=== PATIENT | female | born 1970 | race Caucasian/White ===

== ENCOUNTER 2021-05-24 10:14 | Inpatient (IN) | payer SELFPAY ==
[~2021-05-24] VITALS: Ht 157.5 cm; Wt 57.0 kg
[2021-05-24] MEDS ORDERED: IV NORMAL SALINE 1000ML BAG 1,000 ML IV SCH (10:45)
[2021-05-24] MEDS ORDERED: FAMOTIDINE 20 MG/2 ML VIAL IVP ONE (10:45)
[2021-05-24] MEDS ORDERED: METOCLOPRAMIDE HCL 10 MG/2 ML VIAL. IVP ONE (10:45)
[2021-05-24 10:55] LABS: BASO # 0.1 x10^3/uL (0.0-0.2); BASO % 1 % (0-3); EOS % 0 % (0-3); HEMOGLOBIN 13.3 g/dL (12.0-15.5); LYMPH # 1.4 x10^3/uL (1.0-4.8); LYMPH % 13 % (24-48); MEAN CORPUSCULAR HEMOGLOBIN 32 pg (25-35); MEAN CORPUSCULAR HGB CONC 34 g/dL (31-37); MEAN CORPUSCULAR VOLUME 94 fL (79-100); MONO # 0.4 x10^3/uL (0.0-1.1); MONO % 4 % (0-9); NEUT # 9.1 x10^3/uL (1.8-7.7); NEUT % 82 % (31-73); PLATELET COUNT 358 x10^3/uL (140-400); RED BLOOD COUNT 4.16 x10^6/uL (3.50-5.40); RED CELL DISTRIBUTION WIDTH 12.8 % (11.5-14.5)
[2021-05-24 11:07] LABS: CALCIUM 8.1 mg/dL (8.5-10.1); CREATININE 0.8 mg/dL (0.6-1.0); GFR 76.2; POTASSIUM 3.6 mmol/L (3.5-5.1)
[2021-05-24 11:10] LABS: ALBUMIN 3.2 g/dL (3.4-5.0); ALBUMIN/GLOBULIN RATIO 0.8 (1.0-1.7); TOTAL BILIRUBIN 0.6 mg/dL (0.2-1.0); TOTAL PROTEIN 7.2 g/dL (6.4-8.2)
[2021-05-24] MEDS ORDERED: IOHEXOL 300 MG/ML 100ML VIAL. IV ONE (11:15)
[2021-05-24] MEDS ORDERED: CONTRAST GIVEN. MC PRN (11:15)
[2021-05-24] MEDS ORDERED: HYDROmorphone 2 MG/ML VIAL IVP ONE ×2 (11:15→12:45)
[2021-05-24] MEDS ORDERED: ONDANSETRON PF 4 MG/2 ML VIAL. ONE (11:38)
[2021-05-24] MEDS ORDERED: ONDANSETRON PF 4 MG/2 ML VIAL. IM ONE (11:45)
[2021-05-24 11:51] LABS: BILIRUBIN,URINE NEGATIVE (NEG); CLARITY,URINE CLEAR; COLOR,URINE YELLOW; NITRITE,URINE NEGATIVE (NEG); PH,URINE 6.5 (<5.0-8.0); PROTEIN,URINE NEGATIVE (NEG-TRACE); UROBILINOGEN,URINE 0.2 mg/dL (0.2 mg/dL)
[2021-05-24 11:59] LABS: BARBITURATES NEG (NEG); BENZODIAZEPINES NEG (NEG); CANNABINOIDS NEG (NEG); COCAINE NEG (NEG); METHADONE NEG (NEG); OPIATES POS (NEG); PHENCYCLIDINE NEG (NEG); RBC,URINE 0 /HPF (0-2)
[2021-05-24 12:00] LABS: AMPHETAMINE/METHAMPHETAMINE NEG (NEG); BACTERIA,URINE MODERATE /HPF (0-FEW)
--- NOTE | 2021-05-24 12:43 | RAD ---
INDICATION: Reason: abd pain, rlq, n//vd / Spl. Instructions: omni 300 75ml / History: COMPARISON: None. TECHNIQUE: Axial CT images were obtained through the abdomen and pelvis with intravenous contrast. One or more of the following individualized dose reduction techniques were utilized for this examinat ion: 1. Automated exposure control; 2. Adjustment of the mA and/or kV according to patient size; 3 . Use of iterative reconstruction technique. FINDINGS: Small hiatal hernia. Vascular: Scattered calcific atherosclerosis. Hepatobiliary: Liver is enlarged. Pancreas: The pancreas enhances. Spleen: Spleen unremarkable. Renal: Anterior to the left kidney medially there is a small kobi of air seen and difficult to tell if this is air within a diverticulum or a small focus of free air. No hydronephrosis Bladder: Partially distended Gastrointestinal: At the anterior aspect of the abdomen on the right at the level of the right kidney there is a small focus of air identified. Difficult to tell if this is secondary to a diverticulum o ff of the adjacent bowel or if this is a small focus of free air. Edema seen within the mesentery as well as free fluid. There is loculated fluid within the pelvis wit h enhancement of the peritoneum with this region of fluid measuring up to approximately 85 x 88 mm. T here are some additional loculated regions of fluid including at the right side of the abdomen abutti ng the liver and right colon Which has an irregular shape. There are multiple thick-walled loops of small bowel and large bowel seen throughout the abdomen and pelvis with inflamed appearance. There is also mucosal hyperenhancement. At the right lower quadrant of the abdomen there is a tubular structure measuring up to about 15 mm with high density material wi thin and fluid. This is suspicious for a dilated appendix with multiple appendicoliths within. Degenerative changes the spine with multilevel central canal and neural foraminal stenosis. IMPRESSION: Within the right lower quadrant of the abdomen there is a tubular structure identified with high den sity material within suspicious for an enlarged appendix with multiple appendicoliths. This can be se en with appendicitis. The large and small bowel loops have thickened valencia and mucosal hyperenhancement concerning for ente rocolitis which could be secondary to inflammation from ruptured appendicitis. There is also loculate d fluid within the pelvis and right side of the abdomen with peripheral enhancement which can be seen with peritonitis or phlegmon/developing abscess. In addition there is a couple of foci of air seen a djacent to bowel loops and difficult to tell if this is secondary to extraluminal air or if this is s econdary to small diverticula. Report called to the emergency department at 12:34 PM Electronically signed by: Behzad Torrez MD (05/24/2021 12:41 PM) [id number]
[2021-05-24] MEDS ORDERED: AZTREONAM IV Push 2 GM VIAL. IVP ONE (12:45)
--- NOTE | 2021-05-24 12:50 | PDOC1 ---
History and Physical Date of Admission Date of Admission DATE: 05/24/21 TIME: 12:49 Identification/Chief Complaint Chief Complaint Abdominal pain Source Source: Chart review, Patient History of Present Illness History of Present Illness Ms Silva 50 yo F with no past medical history who is an ecig user presents to the ED c/o abdominal pain for the past 48 hours prior to presentation. Pain started on 927 and is periumbilical crampy and has been progressive since then has moved to the right lower quadrant is more diffuse. Today her pain was 10 out of 10 sharp while sitting in her desk and had sudden onset vomiting and multiple episodes of diarrhea. She became lightheaded felt as though she was going to pass out so came to the emergency department for further treatment. Never been hospitalized before neurosurgery previously. She takes oral contraceptive and is weaning herself down on an e-cigarette vaporizing device. Labs with WBC 11, Hb 13.3, platelets 358, NA 134, K3.6, BUN 9, CR 0.8, glucose 120, CRP 91, albumin 3.2, UA with multiple squamous epithelial cells likely bad sample but hCG negative. UDS after pain medication positive for opioids. CT abdomen pelvis reviewed visually and with radiology with tubular structure identified with high density material within suspicious for an enlarged appendix with multiple appendicoliths. Admitted for further care. Past Medical History Cardiovascular: No pertinent hx Past Surgical History Past Surgical History: No pertinent history Family History Family History reviewed Family History: No Significant Current Medications Current Medications Current Medications Sodium Chloride 1,000 ml @ 1,000 mls/hr Q1H IV Last administered on 05/24/21at 10:56; Start 05/24/21 at 10:45; Stop 05/24/21 at 11:44 Famotidine (Pepcid Vial) 20 mg 1X ONCE IVP Last administered on 05/24/21at 10:54; Start 05/24/21 at 10:45; Stop 05/24/21 at 10:46 Metoclopramide HCl (Reglan Vial) 10 mg 1X ONCE IVP Last administered on 05/24at 10:57; Start 05/24/21 at 10:45; Stop 05/24/21 at 10:46 Hydromorphone HCl (Dilaudid) 1 mg 1X ONCE IVP Last administered on 05/24/21at 11:15; Start 05/24/21 at 11:15; Stop 05/24/21 at 11:16 Iohexol (Omnipaque 300 Mg/ml) 75 ml 1X ONCE IV ; Start 05/24/21 at 11:15; Stop 05/24/21 at 11:16 Info (CONTRAST GIVEN -- Rx MONITORING) 1 each PRN DAILY PRN MC SEE COMMENTS; Start 05/24/21 at 11:15; Stop 05/26/21 at 11:14 Ondansetron HCl (Zofran) 4 mg 1X ONCE IM ; Start 05/24/21 at 11:45; Stop 05/24/21 at 11:46 Ondansetron HCl (Zofran) 4 mg STK-MED ONCE .ROUTE ; Start 05/24/21 at 11:38; Stop 05/24/21 at 11:38; Status DC Aztreonam (Azactam) 2 gm 1X ONCE IVP ; Start 05/24/21 at 12:45; Stop 05/24/21 at 12:46; Status UNV Metronidazole 100 ml @ 100 mls/hr 1X ONCE IV ; Start 05/24/21 at 12:45; Stop 05/24/21 at 13:44 Hydromorphone HCl (Dilaudid) 1 mg 1X ONCE IVP ; Start 05/24/21 at 12:45; Stop 05/24/21 at 12:46 Allergies Allergies: Coded Allergies: Penicillins (Verified Adverse Reaction, Intermediate, N/V, 05/24/21) ROS General: No: Chills, Night Sweats, Fatigue, Malaise, Appetite, Other PSYCHOLOGICAL ROS: No: Anxiety, Behavioral Disorder, Concentration difficultie, Decreased libido, Depression, Disorientation, Hallucinations, Hostility, Irritablity, Memory difficulties, Mood Swings, Obsessive thoughts, Physical abuse, Sexual abuse, Sleep disturbances, Suicidal ideation, Other Eyes: No Blurry vision, No Decreased vision, No Double vision, No Dry eyes, No Excessive tearing, No Eye Pain, No Itchy Eyes, No Loss of vision, No Kong tophobia, No Scotomata, No Uses contacts, No Uses glasses, No Other HEENT: No: Heacaches, Visual Changes, Hearing change, Nasal congestion, Nasal discharge, Oral lesions, Sinus pain, Sore Throat, Epistaxis, Sneezing, Snoring, Tinnitus, Vertigo, Vocal changes, Other ALLERGY AND IMMUNOLOGY: No: Hives, Insect Bite Sensitivity, Itchy/Watery Eyes, Nasal Congestion, Post Nasal Drip, Seasonal Allergies, Other Hematological and Lymphatic: No: Bleeding Problems, Blood Clots, Blood Transfusions, Brusing, Night Sweats, Pallor, Swollen Lymph Nodes, Other ENDOCRINE: No: Breast Changes, Galactorrhea, Hair Pattern Changes, Hot Flashes, Malaise/lethargy, Mood Swings, Palpitations, Polydipsia/polyuria, Skin Changes, Temperature Intolerance, Unexpected Weight Changes, Other Breast: No New/Changing Breast Lumps, No Nipple changes, No Nipple discharge, No Other Respiratory: No: Cough, Hemoptysis, Orthopnea, Pleuritic Pain, Shortness of breath, SOB with excertion, Sputum Changes, Stridor, Tachypnea, Wheezing, Other Cardiovascular: No Chest Pain, No Palpitations, No Orthopnea, No Paroxysmal Noc. Dyspnea, No Edema, No Lt Headedness, No Other Gastrointestinal: Yes Nausea, Yes Vomiting; No Abdominal Pain, No Diarrhea, No Constipation, No Melena, No Hematochezia, No Other Genitourinary: No Dysuria, No Frequency, No Incontinence, No Hematuria, No Retention, No Discharge, No Urgency, No Pain, No Flank Pain, No Other, No , No , No , No , No , No , No Musculoskeletal: No Gait Disturbance, No Joint Pain, No Joint Stiffness, No Joint Swelling, No Muscle Pain, No Muscular Weakness, No Pain In:, No Swelling In:, No Other Neurological: No Behavorial Changes, No Bowel/Bladder ControlChng, No Confusion, No Dizziness, No Gait Disturbance, No Headaches, No Impaired Coor d/balance, No Memory Loss, No Numbness/Tingling, No Seizures, No Speech Problems, No Tremors, No Visual Changes, No Weakness, No Other Skin: No Dry Skin, No Eczema, No Hair Changes, No Lumps, No Mole Changes, No Mottling, No Nail Changes, No Pruritus, No Rash, No Skin Lesion Changes, No Other, No Acne Physical Exam General: Alert, Oriented X3, Cooperative, moderate distress HEENT: Atraumatic, PERRLA, EOMI, Mucous membr. moist/pink Lungs: Clear to auscultation, Normal air movement Heart: S1S2, RRR, no thrills, no rubs, no gallops, no murmurs Abdomen: Normal bowel sounds, Soft, No hepatosplenomegaly, No masses, Other ( RLQ tenderness) Rectal Exam: not examined Extremities: No clubbing, No cyanosis, No edema, Normal pulses, No tenderness/swelling Skin: No rashes, No breakdown, No significant lesion Neuro: Normal gait, Normal speech, Strength at 5/5 X4 ext, Normal tone, Sensation intact, Cranial nerves 3-12 NL, Reflexes 2+ Psych/Mental Status: Mental status NL, Mood NL Vitals Vitals Vital Signs Date Time Temp Pulse Resp B/P (MAP) Pulse Ox O2 Delivery O2 Flow Rate FiO2 05/24/21 12:43 84 111/66 (81) 100 Room Air 05/24/21 10:23 99.3 18 99.3 Labs Labs Laboratory Tests Test 05/24/21 10:30 05/24/21 11:23 05/24/21 11:48 White Blood Count 11.0 x10^3/uL (4.0-11.0) Red Blood Count 4.16 x10^6/uL (3.50-5.40) Hemoglobin 13.3 g/dL (12.0-15.5) Hematocrit 39.0 % (36.0-47.0) Mean Corpuscular Volume 94 fL (79-100) Mean Corpuscular Hemoglobin 32 pg (25-35) Mean Corpuscular Hemoglobin Concent 34 g/dL (31-37) Red Cell Distribution Width 12.8 % (11.5-14.5) Platelet Count 358 x10^3/uL (140-400) Neutrophils (%) (Auto) 82 % (31-73) Lymphocytes (%) (Auto) 13 % (24-48) Monocytes (%) (Auto) 4 % (0-9) Eosinophils (%) (Auto) 0 % (0-3) Basophils (%) (Auto) 1 % (0-3) Neutrophils # (Auto) 9.1 x10^3/uL (1.8-7.7) Lymphocytes # (Auto) 1.4 x10^3/uL (1.0-4.8) Monocytes # (Auto) 0.4 x10^3/uL (0.0-1.1) Eosinophils # (Auto) 0.0 x10^3/uL (0.0-0.7) Basophils # (Auto) 0.1 x10^3/uL (0.0-0.2) Sodium Level 134 mmol/L (136-145) Potassium Level 3.6 mmol/L (3.5-5.1) Chloride Level 102 mmol/L (98-107) Carbon Dioxide Level 21 mmol/L (21-32) Anion Gap 11 (6-14) Blood Urea Nitrogen 9 mg/dL (7-20) Creatinine 0.8 mg/dL (0.6-1.0) Estimated GFR (Cockcroft-Gault) 76.2 BUN/Creatinine Ratio 11 (6-20) Glucose Level 120 mg/dL (70-99) Calcium Level 8.1 mg/dL (8.5-10.1) Total Bilirubin 0.6 mg/dL (0.2-1.0) Aspartate Amino Transf (AST/SGOT) 18 U/L (15-37) Alanine Aminotransferase (ALT/SGPT) 27 U/L (14-59) Alkaline Phosphatase 41 U/L (46-116) Creatine Kinase 232 U/L (26-192) C-Reactive Protein, Quantitative 91.1 mg/L (0-3.3) Total Protein 7.2 g/dL (6.4-8.2) Albumin 3.2 g/dL (3.4-5.0) Albumin/Globulin Ratio 0.8 (1.0-1.7) Lipase 46 U/L (73-393) Urine Collection Type Unknown Urine Color Yellow Urine Clarity Clear Urine pH 6.5 (<5.0-8.0) Urine Specific [place] 1.020 (1.000-1.030) Urine Protein Negative mg/dL (NEG-TRACE) Urine Glucose (UA) Negative mg/dL (NEG) Urine Ketones (Stick) >=80 mg/dL (NEG) Urine Blood Negative (NEG) Urine Nitrite Negative (NEG) Urine Bilirubin Negative (NEG) Urine Urobilinogen Dipstick 0.2 mg/dL (0.2 mg/dL) Urine Leukocyte Esterase Moderate (NEG) Urine RBC 0 /HPF (0-2) Urine WBC 11-20 /HPF (0-4) Urine Squamous Epithelial Cells Many /LPF Urine Bacteria Moderate /HPF (0-FEW) Urine Mucus Marked /LPF Urine Opiates Screen Pos (NEG) Urine Methadone Screen Neg (NEG) Urine Barbiturates Neg (NEG) Urine Phencyclidine Screen Neg (NEG) Urine Amphetamine/Methamphetamine Neg (NEG) Urine Benzodiazepines Screen Neg (NEG) Urine Cocaine Screen Neg (NEG) Urine Cannabinoids Screen Neg (NEG) Urine Ethyl Alcohol Neg (NEG) Bedside Urine HCG, Qualitative Hcg negative (Negative) Laboratory Tests Test 05/24/21 10:30 05/24/21 11:23 05/24/21 11:48 White Blood Count 11.0 x10^3/uL (4.0-11.0) Red Blood Count 4.16 x10^6/uL (3.50-5.40) Hemoglobin 13.3 g/dL (12.0-15.5) Hematocrit 39.0 % (36.0-47.0) Mean Corpuscular Volume 94 fL (79-100) Mean Corpuscular Hemoglobin 32 pg (25-35) Mean Corpuscular Hemoglobin Concent 34 g/dL (31-37) Red Cell Distribution Width 12.8 % (11.5-14.5) Platelet Count 358 x10^3/uL (140-400) Neutrophils (%) (Auto) 82 % (31-73) Lymphocytes (%) (Auto) 13 % (24-48) Monocytes (%) (Auto) 4 % (0-9) Eosinophils (%) (Auto) 0 % (0-3) Basophils (%) (Auto) 1 % (0-3) Neutrophils # (Auto) 9.1 x10^3/uL (1.8-7.7) Lymphocytes # (Auto) 1.4 x10^3/uL (1.0-4.8) Monocytes # (Auto) 0.4 x10^3/uL (0.0-1.1) Eosinophils # (Auto) 0.0 x10^3/uL (0.0-0.7) Basophils # (Auto) 0.1 x10^3/uL (0.0-0.2) Sodium Level 134 mmol/L (136-145) Potassium Level 3.6 mmol/L (3.5-5.1) Chloride Level 102 mmol/L (98-107) Carbon Dioxide Level 21 mmol/L (21-32) Anion Gap 11 (6-14) Blood Urea Nitrogen 9 mg/dL (7-20) Creatinine 0.8 mg/dL (0.6-1.0) Estimated GFR (Cockcroft-Gault) 76.2 BUN/Creatinine Ratio 11 (6-20) Glucose Level 120 mg/dL (70-99) Calcium Level 8.1 mg/dL (8.5-10.1) Total Bilirubin 0.6 mg/dL (0.2-1.0) Aspartate Amino Transf (AST/SGOT) 18 U/L (15-37) Alanine Aminotransferase (ALT/SGPT) 27 U/L (14-59) Alkaline Phosphatase 41 U/L (46-116) Creatine Kinase 232 U/L (26-192) C-Reactive Protein, Quantitative 91.1 mg/L (0-3.3) Total Protein 7.2 g/dL (6.4-8.2) Albumin 3.2 g/dL (3.4-5.0) Albumin/Globulin Ratio 0.8 (1.0-1.7) Lipase 46 U/L (73-393) Urine Collection Type Unknown Urine Color Yellow Urine Clarity Clear Urine pH 6.5 (<5.0-8.0) Urine Specific [place] 1.020 (1.000-1.030) Urine Protein Negative mg/dL (NEG-TRACE) Urine Glucose (UA) Negative mg/dL (NEG) Urine Ketones (Stick) >=80 mg/dL (NEG) Urine Blood Negative (NEG) Urine Nitrite Negative (NEG) Urine Bilirubin Negative (NEG) Urine Urobilinogen Dipstick 0.2 mg/dL (0.2 mg/dL) Urine Leukocyte Esterase Moderate (NEG) Urine RBC 0 /HPF (0-2) Urine WBC 11-20 /HPF (0-4) Urine Squamous Epithelial Cells Many /LPF Urine Bacteria Moderate /HPF (0-FEW) Urine Mucus Marked /LPF Urine Opiates Screen Pos (NEG) Urine Methadone Screen Neg (NEG) Urine Barbiturates Neg (NEG) Urine Phencyclidine Screen Neg (NEG) Urine Amphetamine/Methamphetamine Neg (NEG) Urine Benzodiazepines Screen Neg (NEG) Urine Cocaine Screen Neg (NEG) Urine Cannabinoids Screen Neg (NEG) Urine Ethyl Alcohol Neg (NEG) Bedside Urine HCG, Qualitative Hcg negative (Negative) Images Images Small hiatal hernia. Vascular: Scattered calcific atherosclerosis. Hepatobiliary: Liver is enlarged. Pancreas: The pancreas enhances. Spleen: Spleen unremarkable. Renal: Anterior to the left kidney medially there is a small kobi of air seen and difficult to tell if this is air within a diverticulum or a small focus of free air. No hydronephrosis Bladder: Partially distended Gastrointestinal: At the anterior aspect of the abdomen on the right at the level of the right kidney there is a small focus of air identified. Difficult to tell if this is secondary to a diverticulum off of the adjacent bowel or if this is a small focus of free air. Edema seen within the mesentery as well as free fluid. There is loculated fluid within the pelvis with enhancement of the peritoneum with this region of fluid measuring up to approximately 85 x 88 mm. There are some additional loculated regions of fluid including at the right side of the abdomen abutting the liver and right colon Which has an irregular shape. There are multiple thick-walled loops of small bowel and large bowel seen throughout the abdomen and pelvis with inflamed appearance. There is also mucosal hyperenhancement. At the right lower quadrant of the abdomen there is a tubular structure measuring up to about 15 mm with high density material within and fluid. This is suspicious for a dilated appendix with multiple appe ndicoliths within. Degenerative changes the spine with multilevel central canal and neural foraminal stenosis. IMPRESSION: Within the right lower quadrant of the abdomen there is a tubular structure identified with high density material within suspicious for an enlarged appendix with multiple appendicoliths. This can be seen with appendicitis. The large and small bowel loops have thickened valencia and mucosal hyperenhancement concerning for enterocolitis which could be secondary to inflammation from ruptured appendicitis. There is also loculated fluid within the pelvis and right side of the abdomen with peripheral enhancement which can be seen with peritonitis or phlegmon/developing abscess. In addition there is a couple of foci of air seen adjacent to bowel loops and difficult to tell if this is secondary to extraluminal air or if this is secondary to small diverticula. Report called to the emergency department at 12:34 PM VTE Prophylaxis Ordered VTE Prophylaxis Devices: No VTE Pharmacological Prophylaxi: No Assessment/Plan Assessment/Plan A/P: Intractable abdominal pain - acute appendicitis. Has PCN allergy listed notes only nausea as she has received Zosyn with no problems. We will continue every 6 hours. Discussed with radiology there is no clear sign of perforation and no clear abscess area to drain, likely pelvic fluid. Given severity of pain likely this is acute appendicitis without perforation. Tobacco use - counseled on cessation, she is cutting back on vaping. FEN - NPO PPX - scds FULL CODE Dispo - inpatient Justifications for Admission Other Justification HAYLEY NARAYANAN MD May 24, 2021 12:49
--- NOTE | 2021-05-24 12:59 | PHYS DOC ---
Past Medical History Past Surgical History: No Surgical History Smoking Status: Current Every Day Smoker Additional Information: SMOKES E CIGGS Alcohol Use: Occasionally General Adult EDM: Chief Complaint: NAUSEA/VOMITING/DIARRHEA HPI: HPI: 50 yo F PMH tobacco use/ecig use presents to the ed with her , (patient consents to his/her/their knowledge and involvement in pts' medical care), complaints of diffuse abdominal pain described as cramping and bloating with loose watery diarrhea since Saturday, now with nausea, nonbloody nonbilious vomiting that started this morning and bilateral low back pain. Patient states she was at work when the pain became so severe that she almost passed out. Pain is now felt worse in the right lower quadrant. Reports associated anorexia and is scared to eat. Reports she did not completely pass out or hit her head. No associated fever. No past surgical history. Last menstrual period last week and half ago. Last meal 6 PM last night where she was able to keep down short ribs. Reports vomiting with penicillin. Review of Systems: Review of Systems: Constitutional: Denies fever or chills. [] Eyes: Denies change in visual acuity. [] HENT: Denies nasal congestion or sore throat. [] Respiratory: Denies cough or shortness of breath. [] Cardiovascular: Denies chest pain or edema. [] GI: Denies melena, hematochezia or constipation : Denies dysuria, hematuria, vaginal bleeding or abnormal vaginal discharge Musculoskeletal: Denies flank pain or joint pain. [] Integument: Denies rash or diaphoresis Neurologic: Denies headache, focal weakness or sensory changes. [] Endocrine: Denies polyuria or polydipsia. [] Lymphatic: Denies swollen glands. [] Psychiatric: Denies depression or anxiety. [] Heart Score: C/O Chest Pain: No Risk Factors: Risk Factors: DM, Current or recent (<one month) smoker, HTN, HLP, family history of CAD, obesity. Risk Scores: Score 0 - 3: 2.5% MACE over next 6 weeks - Discharge Home Score 4 - 6: 20.3% MACE over next 6 weeks - Admit for Clinical Observation Score 7 - 10: 72.7% MACE over next 6 weeks - Early Invasive Strategies Current Medications: Current Medications Medications (Trade) Dose Ordered Sig/Louisa Start Time Stop Time Status Last Admin Dose Admin Aztreonam (Azactam) 2 gm 1X ONCE 05/24/21 12:45 05/24/21 12:46 UNV Famotidine (Pepcid Vial) 20 mg 1X ONCE 05/24/21 10:45 05/24/21 10:46 05/24/21 10:54 20 MG Hydromorphone HCl (Dilaudid) 1 mg 1X ONCE 05/24/21 12:45 05/24/21 12:46 Info (CONTRAST GIVEN -- Rx MONITORING) 1 each PRN DAILY PRN 05/24/21 11:15 05/26/21 11:14 Iohexol (Omnipaque 300 Mg/ml) 75 ml 1X ONCE 05/24/21 11:15 05/24/21 11:16 Metoclopramide HCl (Reglan Vial) 10 mg 1X ONCE 05/24/21 10:45 05/24/21 10:46 05/24/21 10:57 10 MG Metronidazole 100 ml @ 100 mls/hr 1X ONCE 05/24/21 12:45 05/24/21 13:44 Ondansetron HCl (Zofran) 4 mg STK-MED ONCE 05/24/21 11:38 05/24/21 11:38 DC Sodium Chloride 1,000 ml @ 1,000 mls/hr Q1H 05/24/21 10:45 05/24/21 11:44 05/24/21 10:56 1,000 MLS/HR Allergies: Allergies: Allergies Coded Allergies Type Severity Reaction Last Updated Verified Penicillins Adverse Reaction Intermediate N/V 05/24/21 Yes Physical Exam: PE: Constitutional: Afebrile, uncomfortable appearing and writhing in stretcher HENT: Normocephalic, atraumatic, dry mucous membranes Eyes: EOMI, conjunctiva normal, no discharge. Neck: Normal range of motion, supple, Cardiovascular: S1/2 present, regular rhythm Lungs & Thorax: Speaking in full sentences, bilateral equal chest rise, no tachypnea or increased work of breathing Abdomen: Voluntary guarding with warm hot region abdomen, diffuse dependence but worse in right lower quadrant Skin: Warm, dry, no erythema, no rash. [] Back: No tenderness, no CVA tenderness. [] Extremities: No tenderness, no cyanosis, no lower extremity edema Neurologic: Alert and oriented X 3, normal motor function, normal sensory function, no focal deficits noted. [] Psychologic: Affect normal, judgement normal, mood normal. [] Current Patient Data: Labs: Laboratory Tests Test 05/24/21 10:30 05/24/21 11:23 05/24/21 11:48 White Blood Count 11.0 x10^3/uL (4.0-11.0) Red Blood Count 4.16 x10^6/uL (3.50-5.40) Hemoglobin 13.3 g/dL (12.0-15.5) Hematocrit 39.0 % (36.0-47.0) Mean Corpuscular Volume 94 fL (79-100) Mean Corpuscular Hemoglobin 32 pg (25-35) Mean Corpuscular Hemoglobin Concent 34 g/dL (31-37) Red Cell Distribution Width 12.8 % (11.5-14.5) Platelet Count 358 x10^3/uL (140-400) Neutrophils (%) (Auto) 82 % (31-73) H Lymphocytes (%) (Auto) 13 % (24-48) L Monocytes (%) (Auto) 4 % (0-9) Eosinophils (%) (Auto) 0 % (0-3) Basophils (%) (Auto) 1 % (0-3) Neutrophils # (Auto) 9.1 x10^3/uL (1.8-7.7) H Lymphocytes # (Auto) 1.4 x10^3/uL (1.0-4.8) Monocytes # (Auto) 0.4 x10^3/uL (0.0-1.1) Eosinophils # (Auto) 0.0 x10^3/uL (0.0-0.7) Basophils # (Auto) 0.1 x10^3/uL (0.0-0.2) Sodium Level 134 mmol/L (136-145) L Potassium Level 3.6 mmol/L (3.5-5.1) Chloride Level 102 mmol/L (98-107) Carbon Dioxide Level 21 mmol/L (21-32) Anion Gap 11 (6-14) Blood Urea Nitrogen 9 mg/dL (7-20) Creatinine 0.8 mg/dL (0.6-1.0) Estimated GFR (Cockcroft-Gault) 76.2 BUN/Creatinine Ratio 11 (6-20) Glucose Level 120 mg/dL (70-99) H Calcium Level 8.1 mg/dL (8.5-10.1) L Total Bilirubin 0.6 mg/dL (0.2-1.0) Aspartate Amino Transferase (AST) 18 U/L (15-37) Alanine Aminotransferase (ALT) 27 U/L (14-59) Alkaline Phosphatase 41 U/L (46-116) L Creatine Kinase 232 U/L (26-192) H C-Reactive Protein, Quantitative 91.1 mg/L (0-3.3) H Total Protein 7.2 g/dL (6.4-8.2) Albumin 3.2 g/dL (3.4-5.0) L Albumin/Globulin Ratio 0.8 (1.0-1.7) L Lipase 46 U/L (73-393) L Urine Collection Type Unknown Urine Color Yellow Urine Clarity Clear Urine pH 6.5 (<5.0-8.0) Urine Specific [place] 1.020 (1.000-1.030) Urine Protein Negative mg/dL (NEG-TRACE) Urine Glucose (UA) Negative mg/dL (NEG) Urine Ketones (Stick) >=80 mg/dL (NEG) Urine Blood Negative (NEG) Urine Nitrite Negative (NEG) Urine Bilirubin Negative (NEG) Urine Urobilinogen Dipstick 0.2 mg/dL (0.2 mg/dL) Urine Leukocyte Esterase Moderate (NEG) Urine RBC 0 /HPF (0-2) Urine WBC 11-20 /HPF (0-4) Urine Squamous Epithelial Cells Many /LPF Urine Bacteria Moderate /HPF (0-FEW) Urine Mucus Marked /LPF Urine Opiates Screen Pos (NEG) Urine Methadone Screen Neg (NEG) Urine Barbiturates Neg (NEG) Urine Phencyclidine Screen Neg (NEG) Urine Amphetamine/Methamphetamine Neg (NEG) Urine Benzodiazepines Screen Neg (NEG) Urine Cocaine Screen Neg (NEG) Urine Cannabinoids Screen Neg (NEG) Urine Ethyl Alcohol Neg (NEG) POC Urine HCG, Qualitative Hcg negative (Negative) Laboratory Tests 05/24/21 10:30 Laboratory Tests 05/24/21 10:30 Vital Signs: Vital Signs Date Time Temp Pulse Resp B/P (MAP) Pulse Ox O2 Delivery O2 Flow Rate FiO2 05/24/21 12:43 84 111/66 (81) 100 Room Air 05/24/21 10:23 99.3 18 99.3 EKG: EKG: [] Radiology/Procedures: Radiology/Procedures: IMAGING REPORT Signed PATIENT: TRAMAINE SEGAL: [id number] : 1970 LOCATION: ER AGE: 50 SEX: F EXAM STATUS: REG ER ORD. PHYSICIAN: DARLEEN MYRICK DO REASON: abd pain, rlq, n//vd PROCEDURE: CT ABD PELV W/ IV CONTRST ONLY INDICATION: Reason: abd pain, rlq, n//vd / Spl. Instructions: omni 300 75ml / History: COMPARISON: None. TECHNIQUE: Axial CT images were obtained through the abdomen and pelvis with intravenous contrast. One or more of the following individualized dose reduction techniques were utilized for this examination: 1. Automated exposure control; 2. Adjustment of the mA and/or kV according to patient size; 3. Use of iterative reconstruction technique. FINDINGS: Small hiatal hernia. Vascular: Scattered calcific atherosclerosis. Hepatobiliary: Liver is enlarged. Pancreas: The pancreas enhances. Spleen: Spleen unremarkable. Renal: Anterior to the left kidney medially there is a small kobi of air seen and difficult to tell if this is air within a diverticulum or a small focus of free air. No hydronephrosis Bladder: Partially distended Gastrointestinal: At the anterior aspect of the abdomen on the right at the leve l of the right kidney there is a small focus of air identified. Difficult to tell if this is secondary to a diverticulum off of the adjacent bowel or if this is a small focus of free air. Edema seen within the mesentery as well as free fluid. There is loculated fluid within the pelvis with enhancement of the peritoneum with this region of fluid measuring up to approximately 85 x 88 mm. There are some additional loculated regions of fluid including at the right side of the abdomen abutting the liver and right colon Which has an irregular shape. There are multiple thick-walled loops of small bowel and large bowel seen throughout the abdomen and pelvis with inflamed appearance. There is also mu cosal hyperenhancement. At the right lower quadrant of the abdomen there is a tubular structure measuring up to about 15 mm with high density material within and fluid. This is suspicious for a dilated appendix with multiple appendicoliths within. Degenerative changes the spine with multilevel central canal and neural foraminal stenosis. IMPRESSION: Within the right lower quadrant of the abdomen there is a tubular structure identified with high density material within suspicious for an enlarged appendix with multiple appendicoliths. This can be seen with appendicitis. The large and small bowel loops have thickened valencia and mucosal hyperenhancement concerning for enterocolitis which could be secondary to inflammation from ruptured appendicitis. There is also loculated fluid within the pelvis and right side of the abdomen with peripheral enhancement which can be seen with peritonitis or phlegmon/developing abscess. In addition there is a couple of foci of air seen adjacent to bowel loops and difficult to tell if this is secondary to extraluminal air or if this is secondary to small diverticula. Report called to the emergency department at 12:34 PM Electronically signed by: Melany Gutierrez MD (05/24/2021 12:41 PM) DESKTOP- [id number] DICTATED and SIGNED BY: MELANY GUTIERREZ MD DATE: 05/24/21 [id number] 0 Course & Med Decision Making: Course & Med Decision Making Pertinent Labs and Imaging studies reviewed. (See chart for details) Concern for complicated acute appendicitis with large abscess, approximately 8 x 9 cm, does not meet sepsis criteria. Was started on antibiotics and patient has been n.p.o. for more than 12 hours. Urinalysis is contaminated. I d/w Dr. Soria who accepted admission. I d/w general surgery, Dr. Chauhan who requested IR for drainage. I d/w IR, Dr. Encarnacion who will evaluate patient, full consultation pending.. Patient stable time of admission and agrees with this plan. I have spoken with the patient and/or caregivers. I have explained the patient's condition, diagnosis and treatment plan based on the information available to me at this time. I have answered the patient's and/or caregivers questions and answered any concerns. The patient and/or caregivers have as good an understanding of the patient's diagnosis, condition and treatment plan as can be expected at this point. The patient has been stabilized within the capability of the emergency department. The patient will be transported for further care and management or will be moved to an observation or inpatient service. I have communicated with the staff or medical practitioner taking over this patient's care. Critical Care: Authorized and Performed by: Darleen Myrick DO Total critical care time: approximately 45 minutes Due to a high probability of clinically significant, life threatening det erioration, the patient required my highest level of preparedness to intervene emergently and I personally spent this critical care time directly and personally managing the patient. This critical care time included obtaining a history; examining the patient; pulse oximetry; ventilator management if necessary; ordering and review of studies; arranging urgent treatment with development of a management plan; evaluation of patient's response to treatment; frequent reassessment; discussion with patient/family; and, discussions with other providers. This critical care time was performed to assess and manage the high probability of imminent, life-threatening deterioration that could result in multi-organ failure. It was exclusive of separately billable procedures and treating other patients and teaching time. Please see MDM section and the rest of the note for further information on patient assessment and treatment. Dragon Disclaimer: Dragon Disclaimer: This electronic medical record was generated, in whole or in part, using a voice recognition dictation system. Departure Departure Impression: Primary Impression: Acute appendicitis with generalized peritonitis and abscess Disposition: ADMITTED INPATIENT Admitting Physician: GARCÍA (Dr. Soria) Condition: CRITICAL Referrals: NO PCP (PCP) DARLEEN MYRICK DO May 24, 2021 12:59
[2021-05-24] MEDS ORDERED: PIPERACILLIN/TAZOBACTAM 3.375 GM in IV NORMAL SALINE 50ML 50 ML IV ONE (13:30)
[2021-05-24 14:53] VITALS: BP 117/70
[2021-05-24] MEDS ORDERED: ACETAMINOPHEN 650 MG SUPP.RECT. PR PRN (15:30)
[2021-05-24] MEDS ORDERED: HYDROmorphone 2 MG/ML VIAL IVP PRN (15:30)
[2021-05-24] MEDS ORDERED: POTASSIUM CL 20MEQ D5-0.45NACL 1,000 ML IV ONE (15:30)
[2021-05-24] MEDS: ONDANSETRON PF 4 MG/2 ML VIAL. IVP PRN ×2 (18:00→21:51)
[2021-05-24] MEDS ORDERED: ASCO-180 PO (18:12)
[2021-05-24] MEDS ORDERED: ASCO1TAB14 PO (18:12)
[2021-05-24] MEDS ORDERED: OMEG1CAP38 PO (18:12)
[2021-05-24] MEDS ORDERED: Birth control PO (18:13)
[2021-05-24] MEDS ORDERED: PROCHLORPERAZINE 10 MG/2 ML VIAL. IV PRN (18:45)
[2021-05-24 19:00] VITALS: BP 124/69
[2021-05-24] MEDS: PIPERACILLIN/TAZOBACTAM 3.375 GM in IV NORMAL SALINE 50ML 50 ML IV SCH (21:50)
[2021-05-24] MEDS: HYDROmorphone 2 MG/ML VIAL IVP PRN (21:55)
[2021-05-24 22:50] VITALS: BP 118/65
[2021-05-25] VITALS (21 sets, daily range): BP systolic 100–124; BP diastolic 58–88
[2021-05-25] MEDS: PIPERACILLIN/TAZOBACTAM 3.375 GM in IV NORMAL SALINE 50ML 50 ML IV SCH ×4 (01:07→18:00)
[2021-05-25] MEDS: HYDROmorphone 2 MG/ML VIAL IVP PRN ×2 (02:47→10:23)
[2021-05-25 07:35] LABS: BASO % 0 % (0-3); EOS # 0.1 x10^3/uL (0.0-0.7); EOS % 0 % (0-3); HEMOGLOBIN 12.3 g/dL (12.0-15.5); LYMPH # 0.9 x10^3/uL (1.0-4.8); LYMPH % 6 % (24-48); MEAN CORPUSCULAR HEMOGLOBIN 32 pg (25-35); MEAN CORPUSCULAR HGB CONC 34 g/dL (31-37); MEAN CORPUSCULAR VOLUME 95 fL (79-100); MONO # 0.6 x10^3/uL (0.0-1.1); MONO % 4 % (0-9); NEUT # 13.7 x10^3/uL (1.8-7.7); NEUT % 90 % (31-73); PLATELET COUNT 296 x10^3/uL (140-400); RED CELL DISTRIBUTION WIDTH 13.1 % (11.5-14.5); WHITE BLOOD COUNT 15.2 x10^3/uL (4.0-11.0)
--- NOTE | 2021-05-25 08:02 | PDOC ---
Provider Note Date of Service: DATE: 05/25/21 TIME: 07:58 Provider Note IR Consulted for drain placement. CT reviewed. Acute appendicitis with 2 large appendicoliths. There is fluid in the pelvis. While the sterility of the collection cannot ultimately be determined by ct, the appearance is more suggestive reactive fluid than an abscess. Await surgical recs. If no appendectomy planned, can place transgluteal drain or aspiration to evaluate fluid. Justifications for Admission Other Justification SELMA MÁRQUEZ MD May 25, 2021 08:02
[2021-05-25 08:06] LABS: ALBUMIN 2.3 g/dL (3.4-5.0); ALBUMIN/GLOBULIN RATIO 0.6 (1.0-1.7); CALCIUM 7.4 mg/dL (8.5-10.1); CREATININE 0.9 mg/dL (0.6-1.0); GFR 66.5; POTASSIUM 3.5 mmol/L (3.5-5.1); TOTAL BILIRUBIN 0.7 mg/dL (0.2-1.0); TOTAL PROTEIN 6.3 g/dL (6.4-8.2)
[2021-05-25] MEDS ORDERED: fentaNYL PF VIAL 100 MCG/2 ML VIAL IVP PRN (08:15)
[2021-05-25] MEDS: ONDANSETRON PF 4 MG/2 ML VIAL. IVP PRN (08:25)
--- NOTE | 2021-05-25 09:42 | PDOC ---
PROGRESS NOTES Date of Service: DATE: 05/25/21 TIME: 09:42 Chief Complaint Chief Complaint IMPRESSION: Within the right lower quadrant of the abdomen there is a tubular structure identified with high density material within suspicious for an enlarged appendix with multiple appendicoliths. This can be seen with appendicitis. The large and small bowel loops have thickened valencia and mucosal hyperenhancement concerning for enterocolitis which could be secondary to inflammation from ruptured appendicitis. There is also loculated fluid within the pelvis and right side of the abdomen with peripheral enhancement which can be seen with peritonitis or phlegmon/developing abscess. In addition there is a couple of foci of air seen adjacent to bowel loops and difficult to tell if this is secondary to extraluminal air or if this is secondary to small diverticula. Report called to the emergency department at 12:34 PM VTE Prophylaxis Ordered VTE Prophylaxis Devices: No VTE Pharmacological Prophylaxi: No impression Assessment/Plan A/P: Intractable abdominal pain - acute appendicitis. Has PCN allergy listed notes only nausea as she has received Zosyn with no problems. We will continue every 6 hours. Discussed with radiology there is no clear sign of perforation and no clear abscess area to drain, likely pelvic fluid. Given severity of pain likely this is acute appendicitis without perforation. Tobacco use - counseled on cessation, she is cutting back on vaping. FEN - NPO PPX - scds FULL CODE Dispo - inpatient Justifications for Admission Justifications for Admission Other Justification History of Present Illness History of Present Illness Identification/Chief Complaint Chief Complaint Abdominal pain Source Source: Chart review, Patient History of Present Illness History of Present Illness Ms Silva 50 yo F with no past medical history who is an ecig user presents to the ED c/o abdominal pain for the past 48 hours prior to p resentation. Pain started on 927 and is periumbilical crampy and has been progressive since then has moved to the right lower quadrant is more diffuse. Today her pain was 10 out of 10 sharp while sitting in her desk and had sudden onset vomiting and multiple episodes of diarrhea. She became lightheaded felt as though she was going to pass out so came to the emergency department for further treatment. Never been hospitalized before neurosurgery previously. She takes oral contraceptive and is weaning herself down on an e-cigarette vaporizing device. Labs with WBC 11, Hb 13.3, platelets 358, NA 134, K3.6, BUN 9, CR 0.8, glucose 120, CRP 91, albumin 3.2, UA with multiple squamous epithelial cells likely bad sample but hCG negative. UDS after pain medication positive for opioids. CT abdomen pelvis reviewed visually and with radiology with tubular structure identified with high density material within suspicious for an enlarged appendix with multiple appendicoliths. Admitted for further care. Past Medical History Cardiovascular: No pertinent hx Past Surgical History Past Surgical History: No pertinent history Family History Family History reviewed Family History: No Significant Current Medications Current Medications Current Medications Sodium Chloride 1,000 ml @ 1,000 mls/hr Q1H IV Last administered on 05/24/21at 10:56; Start 05/24/21 at 10:45; Stop 05/24/21 at 11:44 Famotidine (Pepcid Vial) 20 mg 1X ONCE IVP Last administered on 05/24/21at 10:54; Start 05/24/21 at 10:45; Stop 05/24/21 at 10:46 Metoclopramide HCl (Reglan Vial) 10 mg 1X ONCE IVP Last administered on 05/24/21at 10:57; Start 05/24/21 at 10:45; Stop 05/24/21 at 10:46 Hydromorphone HCl (Dilaudid) 1 mg 1X ONCE IVP Last administered on 05/24/21at 11:15; Start 05/24/21 at 11:15; Stop 05/24/21 at 11:16 Iohexol (Omnipaque 300 Mg/ml) 75 ml 1X ONCE IV ; Start 05/24/21 at 11:15; Stop 05/24/21 at 11:16 Info (CONTRAST GIVEN -- Rx MONITORING) 1 each PRN DAILY PRN MC SEE COMMENTS; Start 05/24/21 at 11:15; Stop 05/26/21 at 11:14 Ondansetron HCl (Zofran) 4 mg 1X ONCE IM ; Start 05/24/21 at 11:45; Stop 05/24/21 at 11:46 Ondansetron HCl (Zofran) 4 mg STK-MED ONCE .ROUTE ; Start 05/24/21 at 11:38; Stop 05/24/21 at 11:38; Status DC Aztreonam (Azactam) 2 gm 1X ONCE IVP ; Start 05/24/21 at 12:45; Stop 05/24/21 at 12:46; Status UNV Metronidazole 100 ml @ 100 mls/hr 1X ONCE IV ; Start 05/24/21 at 12:45; Stop 05/24/21 at 13:44 Hydromorphone HCl (Dilaudid) 1 mg 1X ONCE IVP ; Start 05/24/21 at 12:45; Stop 05/24/21 at 12:46 Allergies Allergies: Coded Allergies: Penicillins (Verified Adverse Reaction, Intermediate, N/V, 05/24/21) ROS General: No: Chills, Night Sweats, Fatigue, Malaise, Appetite, Other PSYCHOLOGICAL ROS: No: Anxiety, Behavioral Disorder, Concentration difficultie, Decreased libido, Depression, Disorientation, Hallucinations, Hostility, Irritablity, Memory difficulties, Mood Swings, Obsessive thoughts, Physical abuse, Sexual abuse, Sleep disturbances, Suicidal ideation, Other Eyes: No Blurry vision, No Decreased vision, No Double vision, No Dry eyes, No Excessive tearing, No Eye Pain, No Itchy Eyes, No Loss of vision, No Photophobia, No Scotomata, No Uses contacts, No Uses glasses, No Other HEENT: No: Heacaches, Visual Changes, Hearing change, Nasal congestion, Nasal discharge, Oral lesions, Sinus pain, Sore Throat, Epistaxis, Sneezing, Snoring, Tinnitus, Vertigo, Vocal changes, Other ALLERGY AND IMMUNOLOGY: No: Hives, Insect Bite Sensitivity, Itchy/Watery Eyes, Nasal Congestion, Post Nasal Drip, Seasonal Allergies, Other Hematological and Lymphatic: No: Bleeding Problems, Blood Clots, Blood Transfusions, Brusing, Night Sweats, Pallor, Swollen Lymph Nodes, Other ENDOCRINE: No: Breast Changes, Galactorrhea, Hair Pattern Changes, Hot Flashes, Malaise/lethargy, Mood Swings, Palpitations, Polydipsia/polyuria, Skin Changes, Temperature Intolerance, Unexpected Weight Changes, Other Breast: No New/Changing Breast Lumps, No Nipple changes, No Nipple discharge, No Other Respiratory: No: Cough, Hemoptysis, Orthopnea, Pleuritic Pain, Shortness of breath, SOB with excertion, Sputum Changes, Stridor, Tachypnea, Wheezing, Other Cardiovascular: No Chest Pain, No Palpitations, No Orthopnea, No Paroxysmal Noc. Dyspnea, No Edema, No Lt Headedness, No Other Gastrointestinal: Yes Nausea, Yes Vomiting; No Abdominal Pain, No Diarrhea, No Constipation, No Melena, No Hematochezia, No Other Genitourinary: No Dysuria, No Frequency, No Incontinence, No Hematuria, No Retention, No Discharge, No Urgency, No Pain, No Flank Pain, No Other, No , No , No , No , No , No , No Musculoskeletal: No Gait Disturbance, No Joint Pain, No Joint Stiffness, No Joint Swelling, No Muscle Pain, No Muscular Weakness, No Pain In:, No Swelling In:, No Other Neurological: No Behavorial Changes, No Bowel/Bladder ControlChng, No Confusion, No Dizziness, No Gait Disturbance, No Headaches, No Impaired Coord/balance, No Memory Loss, No Numbness/Tingling, No Seizures, No Speech Problems, No Tremors, No Visual Changes, No Weakness, No Other Skin: No Dry Skin, No Eczema, No Hair Changes, No Lumps, No Mole Changes, No Mottling, No Nail Changes, No Pruritus, No Rash, No Skin Lesion Changes, No Other, No Acne 9-30 intractable abdominal pain - acute appendicitis. Has PCN allergy listed notes only nausea as she has received Zosyn with no problems. We will continue every 6 hours. Discussed with radiology there is no clear sign of perforation and no clear abscess area to drain, likely pelvic fluid. Given severity of pain likely this is acute appendicitis without perforation. Tobacco use - counseled on cessation, she is cutting back on vaping. NPO inpatient/ place transgluteal drain d/w rn Vitals Vitals Vital Signs Date Time Temp Pulse Resp B/P (MAP) Pulse Ox O2 Delivery O2 Flow Rate FiO2 05/25/21 08:25 Room Air 05/25/21 07:30 98.1 80 18 100/61 (74) 97 98.1 Physical Exam General: Alert, Oriented X3, Cooperative, No acute distress Heart: Regular rate Lungs: Clear Abdomen: Normal bowel sounds, Soft, No hepatosplenomegaly, No masses, Other (RLQ tenderness) Extremities: No clubbing, No cyanosis, No edema, Normal pulses, No tenderness/swelling Skin: No rashes, No breakdown, No significant lesion Labs LABS PATIENT: PHILIPP,NICOLEACCOUNT: [id number] : 1970 LOCATION: ER AGE: 50 SEX: F EXAM STATUS: REG ER ORD. PHYSICIAN: MERARY MYRICK DO REASON: abd pain, rlq, n//vd PROCEDURE: CT ABD PELV W/ IV CONTRST ONLY INDICATION: Reason: abd pain, rlq, n//vd / Spl. Instructions: omni 300 75ml / History: COMPARISON: None. TECHNIQUE: Axial CT images were obtained through the abdomen and pelvis with intravenous contrast. One or more of the following individualized dose reduction techniques were utilized for this examination: 1. Automated exposure control; 2. Adjustment of the mA and/or kV according to patient size; 3. Use of iterative reconstruction technique. FINDINGS: Small hiatal hernia. Vascular: Scattered calcific atherosclerosis. Hepatobiliary: Liver is enlarged. Pancreas: The pancreas enhances. Spleen: Spleen unremarkable. Renal: Anterior to the left kidney medially there is a small kobi of air seen and difficult to tell if this is air within a diverticulum or a small focus of free air. No hydronephrosis Bladder: Partially distended Gastrointestinal: At the anterior aspect of the abdomen on the right at the level of the right kidney there is a small focus of air identified. Difficult to tell if this is secondary to a diverticulum off of the adjacent bowel or if this is a small focus of free air. Edema seen within the mesentery as well as free fluid. There is loculated fluid within the pelvis with enhancement of the peritoneum with this region of fluid measuring up to approximately 85 x 88 mm. There are some additional loculated regions of fluid including at the right side of the abdomen abutting the liver and right colon Which has an irregular shape. There are multiple thick-walled loops of small bowel and large bowel seen throughout the abdomen and pelvis with inflamed appearance. There is also mucosal hyperenhancement. At the right lower quadrant of the abdomen there is a tubular structure measuring up to about 15 mm with high density material within and fluid. This is suspicious for a dilated appendix with multiple appendicoliths within. Degenerative changes the spine with multilevel central canal and neural foraminal stenosis. IMPRESSION: Within the right lower quadrant of the abdomen there is a tubular structure identified with high density material within suspicious for an enlarged appendix with multiple appendicoliths. This can be seen with appendicitis. The large and small bowel loops have thickened valencia and mucosal hyperenhancement concerning for enterocolitis which could be secondary to inflammation from ruptured appendicitis. There is also loculated fluid within the pelvis and right side of the abdomen with peripheral enhancement which can be seen with peritonitis or phlegmon/developing abscess. In addition there is a couple of foci of air seen adjacent to bowel loops and difficult to tell if this is secondary to extraluminal air or if this is secondary to small diverticula. Report called to the emergency department at 12:34 PM Electronically signed by: Melany Gutierrez MD (05/24/2021 12:41 PM) [id number] DICTATED and SIGNED BY: MELANY GUTIERREZ MD DATE: 05/24/21 [id number] Laboratory Tests Test 05/24/21 10:30 05/24/21 11:23 05/24/21 11:48 05/24/21 13:48 White Blood Count 11.0 x10^3/uL (4.0-11.0) Red Blood Count 4.16 x10^6/uL (3.50-5.40) Hemoglobin 13.3 g/dL (12.0-15.5) Hematocrit 39.0 % (36.0-47.0) Mean Corpuscular Volume 94 fL (79-100) Mean Corpuscular Hemoglobin 32 pg (25-35) Mean Corpuscular Hemoglobin Concent 34 g/dL (31-37) Red Cell Distribution Width 12.8 % (11.5-14.5) Platelet Count 358 x10^3/uL (140-400) Neutrophils (%) (Auto) 82 % (31-73) Lymphocytes (%) (Auto) 13 % (24-48) Monocytes (%) (Auto) 4 % (0-9) Eosinophils (%) (Auto) 0 % (0-3) Basophils (%) (Auto) 1 % (0-3) Neutrophils # (Auto) 9.1 x10^3/uL (1.8-7.7) Lymphocytes # (Auto) 1.4 x10^3/uL (1.0-4.8) Monocytes # (Auto) 0.4 x10^3/uL (0.0-1.1) Eosinophils # (Auto) 0.0 x10^3/uL (0.0-0.7) Basophils # (Auto) 0.1 x10^3/uL (0.0-0.2) Sodium Level 134 mmol/L (136-145) Potassium Level 3.6 mmol/L (3.5-5.1) Chloride Level 102 mmol/L (98-107) Carbon Dioxide Level 21 mmol/L (21-32) Anion Gap 11 (6-14) Blood Urea Nitrogen 9 mg/dL (7-20) Creatinine 0.8 mg/dL (0.6-1.0) Estimated GFR (Cockcroft-Gault) 76.2 BUN/Creatinine Ratio 11 (6-20) Glucose Level 120 mg/dL (70-99) Calcium Level 8.1 mg/dL (8.5-10.1) Total Bilirubin 0.6 mg/dL (0.2-1.0) Aspartate Amino Transf (AST/SGOT) 18 U/L (15-37) Alanine Aminotransferase (ALT/SGPT) 27 U/L (14-59) Alkaline Phosphatase 41 U/L (46-116) Creatine Kinase 232 U/L (26-192) C-Reactive Protein, Quantitative 91.1 mg/L (0-3.3) Total Protein 7.2 g/dL (6.4-8.2) Albumin 3.2 g/dL (3.4-5.0) Albumin/Globulin Ratio 0.8 (1.0-1.7) Lipase 46 U/L (73-393) Urine Collection Type Unknown Urine Color Yellow Urine Clarity Clear Urine pH 6.5 (<5.0-8.0) Urine Specific [place] 1.020 (1.000-1.030) Urine Protein Negative mg/dL (NEG-TRACE) Urine Glucose (UA) Negative mg/dL (NEG) Urine Ketones (Stick) >=80 mg/dL (NEG) Urine Blood Negative (NEG) Urine Nitrite Negative (NEG) Urine Bilirubin Negative (NEG) Urine Urobilinogen Dipstick 0.2 mg/dL (0.2 mg/dL) Urine Leukocyte Esterase Moderate (NEG) Urine RBC 0 /HPF (0-2) Urine WBC 11-20 /HPF (0-4) Urine Squamous Epithelial Cells Many /LPF Urine Bacteria Moderate /HPF (0-FEW) Urine Mucus Marked /LPF Urine Opiates Screen Pos (NEG) Urine Methadone Screen Neg (NEG) Urine Barbiturates Neg (NEG) Urine Phencyclidine Screen Neg (NEG) Urine Amphetamine/Methamphetamine Neg (NEG) Urine Benzodiazepines Screen Neg (NEG) Urine Cocaine Screen Neg (NEG) Urine Cannabinoids Screen Neg (NEG) Urine Ethyl Alcohol Neg (NEG) Bedside Urine HCG, Qualitative Hcg negative (Negative) SARS-CoV-2 RNA (SEYMOUR) Negative (Negative) SARS-CoV-2 Antigen (Rapid) Negative (NEGATIVE) Test 05/24/21 15:25 05/25/21 06:59 Glucose (Fingerstick) 118 mg/dL (70-99) White Blood Count 15.2 x10^3/uL (4.0-11.0) Red Blood Count 3.80 x10^6/uL (3.50-5.40) Hemoglobin 12.3 g/dL (12.0-15.5) Hematocrit 36.0 % (36.0-47.0) Mean Corpuscular Volume 95 fL (79-100) Mean Corpuscular Hemoglobin 32 pg (25-35) Mean Corpuscular Hemoglobin Concent 34 g/dL (31-37) Red Cell Distribution Width 13.1 % (11.5-14.5) Platelet Count 296 x10^3/uL (140-400) Neutrophils (%) (Auto) 90 % (31-73) Lymphocytes (%) (Auto) 6 % (24-48) Monocytes (%) (Auto) 4 % (0-9) Eosinophils (%) (Auto) 0 % (0-3) Basophils (%) (Auto) 0 % (0-3) Neutrophils # (Auto) 13.7 x10^3/uL (1.8-7.7) Lymphocytes # (Auto) 0.9 x10^3/uL (1.0-4.8) Monocytes # (Auto) 0.6 x10^3/uL (0.0-1.1) Eosinophils # (Auto) 0.1 x10^3/uL (0.0-0.7) Basophils # (Auto) 0.0 x10^3/uL (0.0-0.2) Sodium Level 134 mmol/L (136-145) Potassium Level 3.5 mmol/L (3.5-5.1) Chloride Level 102 mmol/L (98-107) Carbon Dioxide Level 25 mmol/L (21-32) Anion Gap 7 (6-14) Blood Urea Nitrogen 9 mg/dL (7-20) Creatinine 0.9 mg/dL (0.6-1.0) Estimated GFR (Cockcroft-Gault) 66.5 BUN/Creatinine Ratio 10 (6-20) Glucose Level 122 mg/dL (70-99) Calcium Level 7.4 mg/dL (8.5-10.1) Total Bilirubin 0.7 mg/dL (0.2-1.0) Aspartate Amino Transf (AST/SGOT) 15 U/L (15-37) Alanine Aminotransferase (ALT/SGPT) 21 U/L (14-59) Alkaline Phosphatase 45 U/L (46-116) Total Protein 6.3 g/dL (6.4-8.2) Albumin 2.3 g/dL (3.4-5.0) Albumin/Globulin Ratio 0.6 (1.0-1.7) Assessment and Plan Assessmemt and Plan Problems Medical Problems: (1) Acute appendicitis with generalized peritonitis and abscess Status: Acute Comment Review of Relevant I have reviewed the following items reuben (where applicable) has been applied. Labs Laboratory Tests Test 05/24/21 10:30 05/24/21 11:23 05/24/21 11:48 05/24/21 13:48 White Blood Count 11.0 x10^3/uL (4.0-11.0) Red Blood Count 4.16 x10^6/uL (3.50-5.40) Hemoglobin 13.3 g/dL (12.0-15.5) Hematocrit 39.0 % (36.0-47.0) Mean Corpuscular Volume 94 fL (79-100) Mean Corpuscular Hemoglobin 32 pg (25-35) Mean Corpuscular Hemoglobin Concent 34 g/dL (31-37) Red Cell Distribution Width 12.8 % (11.5-14.5) Platelet Count 358 x10^3/uL (140-400) Neutrophils (%) (Auto) 82 % (31-73) Lymphocytes (%) (Auto) 13 % (24-48) Monocytes (%) (Auto) 4 % (0-9) Eosinophils (%) (Auto) 0 % (0-3) Basophils (%) (Auto) 1 % (0-3) Neutrophils # (Auto) 9.1 x10^3/uL (1.8-7.7) Lymphocytes # (Auto) 1.4 x10^3/uL (1.0-4.8) Monocytes # (Auto) 0.4 x10^3/uL (0.0-1.1) Eosinophils # (Auto) 0.0 x10^3/uL (0.0-0.7) Basophils # (Auto) 0.1 x10^3/uL (0.0-0.2) Sodium Level 134 mmol/L (136-145) Potassium Level 3.6 mmol/L (3.5-5.1) Chloride Level 102 mmol/L (98-107) Carbon Dioxide Level 21 mmol/L (21-32) Anion Gap 11 (6-14) Blood Urea Nitrogen 9 mg/dL (7-20) Creatinine 0.8 mg/dL (0.6-1.0) Estimated GFR (Cockcroft-Gault) 76.2 BUN/Creatinine Ratio 11 (6-20) Glucose Level 120 mg/dL (70-99) Calcium Level 8.1 mg/dL (8.5-10.1) Total Bilirubin 0.6 mg/dL (0.2-1.0) Aspartate Amino Transf (AST/SGOT) 18 U/L (15-37) Alanine Aminotransferase (ALT/SGPT) 27 U/L (14-59) Alkaline Phosphatase 41 U/L (46-116) Creatine Kinase 232 U/L (26-192) C-Reactive Protein, Quantitative 91.1 mg/L (0-3.3) Total Protein 7.2 g/dL (6.4-8.2) Albumin 3.2 g/dL (3.4-5.0) Albumin/Globulin Ratio 0.8 (1.0-1.7) Lipase 46 U/L (73-393) Urine Collection Type Unknown Urine Color Yellow Urine Clarity Clear Urine pH 6.5 (<5.0-8.0) Urine Specific [place] 1.020 (1.000-1.030) Urine Protein Negative mg/dL (NEG-TRACE) Urine Glucose (UA) Negative mg/dL (NEG) Urine Ketones (Stick) >=80 mg/dL (NEG) Urine Blood Negative (NEG) Urine Nitrite Negative (NEG) Urine Bilirubin Negative (NEG) Urine Urobilinogen Dipstick 0.2 mg/dL (0.2 mg/dL) Urine Leukocyte Esterase Moderate (NEG) Urine RBC 0 /HPF (0-2) Urine WBC 11-20 /HPF (0-4) Urine Squamous Epithelial Cells Many /LPF Urine Bacteria Moderate /HPF (0-FEW) Urine Mucus Marked /LPF Urine Opiates Screen Pos (NEG) Urine Methadone Screen Neg (NEG) Urine Barbiturates Neg (NEG) Urine Phencyclidine Screen Neg (NEG) Urine Amphetamine/Methamphetamine Neg (NEG) Urine Benzodiazepines Screen Neg (NEG) Urine Cocaine Screen Neg (NEG) Urine Cannabinoids Screen Neg (NEG) Urine Ethyl Alcohol Neg (NEG) Bedside Urine HCG, Qualitative Hcg negative (Negative) SARS-CoV-2 RNA (SEYMOUR) Negative (Negative) SARS-CoV-2 Antigen (Rapid) Negative (NEGATIVE) Test 05/24/21 15:25 05/25/21 06:59 Glucose (Fingerstick) 118 mg/dL (70-99) White Blood Count 15.2 x10^3/uL (4.0-11.0) Red Blood Count 3.80 x10^6/uL (3.50-5.40) Hemoglobin 12.3 g/dL (12.0-15.5) Hematocrit 36.0 % (36.0-47.0) Mean Corpuscular Volume 95 fL (79-100) Mean Corpuscular Hemoglobin 32 pg (25-35) Mean Corpuscular Hemoglobin Concent 34 g/dL (31-37) Red Cell Distribution Width 13.1 % (11.5-14.5) Platelet Count 296 x10^3/uL (140-400) Neutrophils (%) (Auto) 90 % (31-73) Lymphocytes (%) (Auto) 6 % (24-48) Monocytes (%) (Auto) 4 % (0-9) Eosinophils (%) (Auto) 0 % (0-3) Basophils (%) (Auto) 0 % (0-3) Neutrophils # (Auto) 13.7 x10^3/uL (1.8-7.7) Lymphocytes # (Auto) 0.9 x10^3/uL (1.0-4.8) Monocytes # (Auto) 0.6 x10^3/uL (0.0-1.1) Eosinophils # (Auto) 0.1 x10^3/uL (0.0-0.7) Basophils # (Auto) 0.0 x10^3/uL (0.0-0.2) Sodium Level 134 mmol/L (136-145) Potassium Level 3.5 mmol/L (3.5-5.1) Chloride Level 102 mmol/L (98-107) Carbon Dioxide Level 25 mmol/L (21-32) Anion Gap 7 (6-14) Blood Urea Nitrogen 9 mg/dL (7-20) Creatinine 0.9 mg/dL (0.6-1.0) Estimated GFR (Cockcroft-Gault) 66.5 BUN/Creatinine Ratio 10 (6-20) Glucose Level 122 mg/dL (70-99) Calcium Level 7.4 mg/dL (8.5-10.1) Total Bilirubin 0.7 mg/dL (0.2-1.0) Aspartate Amino Transf (AST/SGOT) 15 U/L (15-37) Alanine Aminotransferase (ALT/SGPT) 21 U/L (14-59) Alkaline Phosphatase 45 U/L (46-116) Total Protein 6.3 g/dL (6.4-8.2) Albumin 2.3 g/dL (3.4-5.0) Albumin/Globulin Ratio 0.6 (1.0-1.7) Laboratory Tests Test 05/24/21 10:30 05/24/21 11:23 05/24/21 11:48 05/24/21 13:48 White Blood Count 11.0 x10^3/uL (4.0-11.0) Red Blood Count 4.16 x10^6/uL (3.50-5.40) Hemoglobin 13.3 g/dL (12.0-15.5) Hematocrit 39.0 % (36.0-47.0) Mean Corpuscular Volume 94 fL (79-100) Mean Corpuscular Hemoglobin 32 pg (25-35) Mean Corpuscular Hemoglobin Concent 34 g/dL (31-37) Red Cell Distribution Width 12.8 % (11.5-14.5) Platelet Count 358 x10^3/uL (140-400) Neutrophils (%) (Auto) 82 % (31-73) Lymphocytes (%) (Auto) 13 % (24-48) Monocytes (%) (Auto) 4 % (0-9) Eosinophils (%) (Auto) 0 % (0-3) Basophils (%) (Auto) 1 % (0-3) Neutrophils # (Auto) 9.1 x10^3/uL (1.8-7.7) Lymphocytes # (Auto) 1.4 x10^3/uL (1.0-4.8) Monocytes # (Auto) 0.4 x10^3/uL (0.0-1.1) Eosinophils # (Auto) 0.0 x10^3/uL (0.0-0.7) Basophils # (Auto) 0.1 x10^3/uL (0.0-0.2) Sodium Level 134 mmol/L (136-145) Potassium Level 3.6 mmol/L (3.5-5.1) Chloride Level 102 mmol/L (98-107) Carbon Dioxide Level 21 mmol/L (21-32) Anion Gap 11 (6-14) Blood Urea Nitrogen 9 mg/dL (7-20) Creatinine 0.8 mg/dL (0.6-1.0) Estimated GFR (Cockcroft-Gault) 76.2 BUN/Creatinine Ratio 11 (6-20) Glucose Level 120 mg/dL (70-99) Calcium Level 8.1 mg/dL (8.5-10.1) Total Bilirubin 0.6 mg/dL (0.2-1.0) Aspartate Amino Transf (AST/SGOT) 18 U/L (15-37) Alanine Aminotransferase (ALT/SGPT) 27 U/L (14-59) Alkaline Phosphatase 41 U/L (46-116) Creatine Kinase 232 U/L (26-192) C-Reactive Protein, Quantitative 91.1 mg/L (0-3.3) Total Protein 7.2 g/dL (6.4-8.2) Albumin 3.2 g/dL (3.4-5.0) Albumin/Globulin Ratio 0.8 (1.0-1.7) Lipase 46 U/L (73-393) Urine Collection Type Unknown Urine Color Yellow Urine Clarity Clear Urine pH 6.5 (<5.0-8.0) Urine Specific [place] 1.020 (1.000-1.030) Urine Protein Negative mg/dL (NEG-TRACE) Urine Glucose (UA) Negative mg/dL (NEG) Urine Ketones (Stick) >=80 mg/dL (NEG) Urine Blood Negative (NEG) Urine Nitrite Negative (NEG) Urine Bilirubin Negative (NEG) Urine Urobilinogen Dipstick 0.2 mg/dL (0.2 mg/dL) Urine Leukocyte Esterase Moderate (NEG) Urine RBC 0 /HPF (0-2) Urine WBC 11-20 /HPF (0-4) Urine Squamous Epithelial Cells Many /LPF Urine Bacteria Moderate /HPF (0-FEW) Urine Mucus Marked /LPF Urine Opiates Screen Pos (NEG) Urine Methadone Screen Neg (NEG) Urine Barbiturates Neg (NEG) Urine Phencyclidine Screen Neg (NEG) Urine Amphetamine/Methamphetamine Neg (NEG) Urine Benzodiazepines Screen Neg (NEG) Urine Cocaine Screen Neg (NEG) Urine Cannabinoids Screen Neg (NEG) Urine Ethyl Alcohol Neg (NEG) Bedside Urine HCG, Qualitative Hcg negative (Negative) SARS-CoV-2 RNA (SEYMOUR) Negative (Negative) SARS-CoV-2 Antigen (Rapid) Negative (NEGATIVE) Test 05/24/21 15:25 05/25/21 06:59 Glucose (Fingerstick) 118 mg/dL (70-99) White Blood Count 15.2 x10^3/uL (4.0-11.0) Red Blood Count 3.80 x10^6/uL (3.50-5.40) Hemoglobin 12.3 g/dL (12.0-15.5) Hematocrit 36.0 % (36.0-47.0) Mean Corpuscular Volume 95 fL (79-100) Mean Corpuscular Hemoglobin 32 pg (25-35) Mean Corpuscular Hemoglobin Concent 34 g/dL (31-37) Red Cell Distribution Width 13.1 % (11.5-14.5) Platelet Count 296 x10^3/uL (140-400) Neutrophils (%) (Auto) 90 % (31-73) Lymphocytes (%) (Auto) 6 % (24-48) Monocytes (%) (Auto) 4 % (0-9) Eosinophils (%) (Auto) 0 % (0-3) Basophils (%) (Auto) 0 % (0-3) Neutrophils # (Auto) 13.7 x10^3/uL (1.8-7.7) Lymphocytes # (Auto) 0.9 x10^3/uL (1.0-4.8) Monocytes # (Auto) 0.6 x10^3/uL (0.0-1.1) Eosinophils # (Auto) 0.1 x10^3/uL (0.0-0.7) Basophils # (Auto) 0.0 x10^3/uL (0.0-0.2) Sodium Level 134 mmol/L (136-145) Potassium Level 3.5 mmol/L (3.5-5.1) Chloride Level 102 mmol/L (98-107) Carbon Dioxide Level 25 mmol/L (21-32) Anion Gap 7 (6-14) Blood Urea Nitrogen 9 mg/dL (7-20) Creatinine 0.9 mg/dL (0.6-1.0) Estimated GFR (Cockcroft-Gault) 66.5 BUN/Creatinine Ratio 10 (6-20) Glucose Level 122 mg/dL (70-99) Calcium Level 7.4 mg/dL (8.5-10.1) Total Bilirubin 0.7 mg/dL (0.2-1.0) Aspartate Amino Transf (AST/SGOT) 15 U/L (15-37) Alanine Aminotransferase (ALT/SGPT) 21 U/L (14-59) Alkaline Phosphatase 45 U/L (46-116) Total Protein 6.3 g/dL (6.4-8.2) Albumin 2.3 g/dL (3.4-5.0) Albumin/Globulin Ratio 0.6 (1.0-1.7) Medications Current Medications Sodium Chloride 1,000 ml @ 1,000 mls/hr Q1H IV Last administered on 05/24/21at 10:56; Start 05/24/21 at 10:45; Stop 05/24/21 at 17:30; Status DC Famotidine (Pepcid Vial) 20 mg 1X ONCE IVP Last administered on 05/24/21at 10:54; Start 05/24/21 at 10:45; Stop 05/24/21 at 17:30; Status DC Metoclopramide HCl (Reglan Vial) 10 mg 1X ONCE IVP Last administered on 05/24/21at 10:57; Start 05/24/21 at 10:45; Stop 05/24/21 at 17:30; Status DC Hydromorphone HCl (Dilaudid) 1 mg 1X ONCE IVP Last administered on 05/24/21at 11:15; Start 05/24/21 at 11:15; Stop 05/24/21 at 17:30; Status DC Iohexol (Omnipaque 300 Mg/ml) 75 ml 1X ONCE IV ; Start 05/24/21 at 11:15; Stop 05/24/21 at 17:30; Status DC Info (CONTRAST GIVEN -- Rx MONITORING) 1 each PRN DAILY PRN MC SEE COMMENTS; Start 05/24/21 at 11:15; Stop 05/26/21 at 11:14 Ondansetron HCl (Zofran) 4 mg 1X ONCE IM ; Start 05/24/21 at 11:45; Stop 05/24/21 at 17:30; Status DC Ondansetron HCl (Zofran) 4 mg STK-MED ONCE .ROUTE ; Start 05/24/21 at 11:38; Stop 05/24/21 at 11:38; Status DC Aztreonam (Azactam) 2 gm 1X ONCE IVP ; Start 05/24/21 at 12:45; Stop 05/24/21 at 12:46; Status UNV Metronidazole 100 ml @ 100 mls/hr 1X ONCE IV ; Start 05/24/21 at 12:45; Stop 05/24/21 at 13:44; Status Cancel Hydromorphone HCl (Dilaudid) 1 mg 1X ONCE IVP Last administered on 05/24/21at 13:29; Start 05/24/21 at 12:45; Stop 05/24/21 at 17:30; Status DC Piperacillin Sod/ Tazobactam Sod 3.375 gm/Sodium Chloride 50 ml @ 100 mls/hr 1X ONCE IV Last administered on 05/24/21at 13:29; Start 05/24/21 at 13:30; Stop 05/24/21 at 17:30; Status DC Potassium Chloride/Dextrose/ Sod Cl 1,000 ml @ 75 mls/hr [id number] ONCE IV Last administered on 05/24/21at 16:47; Start 05/24/21 at 15:30; Stop 05/25/21 at 04:49; Status DC Ondansetron HCl (Zofran) 4 mg PRN Q4HRS PRN IVP NAUSEA/VOMITING Last administered on 05/25/21at 08:25; Start 05/24/21 at 15:30 Acetaminophen (Tylenol Supp) 650 mg PRN Q6HRS PRN [place] MILD PAIN / TEMP > 100.3'F; Start 05/24/21 at 15:30 Hydromorphone HCl (Dilaudid) 1 mg PRN Q4HRS PRN IVP PAIN Last administered on 05/24/21at 17:00; Start 05/24/21 at 15:30; Stop 05/24/21 at 18:37; Status DC Piperacillin Sod/ Tazobactam Sod 3.375 gm/Sodium Chloride 50 ml @ 100 mls/hr Q6HRS IV Last administered on 05/25/21at 06:19; Start 05/24/21 at 21:00 Hydromorphone HCl (Dilaudid) 1 mg PRN Q3HRS PRN IVP PAIN, 1ST CHOICE Last administered on 05/25/21at 02:47; Start 05/24/21 at 18:45 Prochlorperazine Edisylate (Compazine) 10 mg PRN Q6HRS PRN IV NAUSEA/VOMITING- 2ND CHOICE Last administered on 05/25/21at 02:37; Start 05/24/21 at 18:45 Fentanyl Citrate (Fentanyl 2ml Vial) 50 mcg PRN Q3HRS PRN IVP PAIN, 2ND CHOICE Last administered on 05/25/21at 08:25; Start 05/25/21 at 08:15 Active Scripts Active Reported [ control] Unknown Dose PO DAILY [place] 3 Fish Oil Softgel ([place]-3 Fatty Acids/Fish Oil) 1 Each Capsule.dr 1 Each PO DAILY Emergen-C 1,000 mg Variety Pk (Ascorbic Acid/Multivit-Min) 1,000 Mg Effpowdpkt 1,000 Mg PO DAILY Hair Skin Nails-Biotin Gummies (Ascorbic Acid/Vitamin E/Biotin) 1 Each Tab.chew 1 Each PO DAILY Vitals/I & O Vital Sign - Last 24 Hours 05/24/21 05/24/21 05/24/21 05/24/21 10:23 10:48 11:48 12:43 Temp 99.3 99.3 Pulse 76 86 82 84 Resp 18 B/P (MAP) 135/74 (94) 137/87 (104) 132/74 (93) 111/66 (81) Pulse Ox 100 100 100 100 O2 Delivery Room Air Room Air Room Air Room Air 05/24/21 05/24/21 05/24/21 05/24/21 13:30 14:53 15:30 17:00 Temp 100.1 100.1 Pulse 82 96 Resp 16 B/P (MAP) 124/70 (88) 117/70 (86) Pulse Ox 100 96 O2 Delivery Room Air Room Air Room Air Room Air 05/24/21 05/24/21 05/24/21 05/24/21 17:30 19:00 20:00 21:55 Temp 98.3 98.3 Pulse 86 Resp 18 16 B/P (MAP) 124/69 (87) Pulse Ox 97 97 O2 Delivery Room Air Room Air Room Air Room Air 05/24/21 05/25/21 05/25/21 05/25/21 22:50 00:55 02:47 03:00 Temp 98.4 99.4 98.4 99.4 Pulse 88 83 Resp 18 18 18 B/P (MAP) 118/65 (82) 118/75 (89) Pulse Ox 97 97 97 96 O2 Delivery Room Air Room Air Room Air Room Air 05/25/21 05/25/21 05/25/21 05/25/21 04:35 07:30 07:53 08:25 Temp 98.1 98.1 Pulse 80 Resp 16 18 B/P (MAP) 100/61 (74) Pulse Ox 97 97 O2 Delivery Room Air Room Air Room Air Room Air Intake and Output 05/24/21 05/24/21 05/25/21 15:00 23:00 07:00 Intake Total 1000 ml Balance 1000 ml Justicifation of Admission Dx: Justifications for Admission: Justification of Admission Dx: Yes Sepsis: Infection SHON HARMON MD May 25, 2021 09:42
--- NOTE | 2021-05-25 10:18 | NUR ---
SW following. Discussed with RN, pt from home with family, room air, NPO, COVID-19 negative. Discussion of appy vs drain placement. Med Assist following for self pay status. SW will continue to follow.
[2021-05-25] MEDS ORDERED: LIDOCAINE WITH 8.4% SOD BICARB 3 ML DISP.SYRIN. ONE (10:23)
[2021-05-25] MEDS ORDERED: MIDAZOLAM HCL/PF 2 MG/2 ML VIAL. ONE (10:46)
[2021-05-25] MEDS ORDERED: fentaNYL PF VIAL 100 MCG/2 ML VIAL ONE (10:47)
[2021-05-25] MEDS ORDERED: ONDANSETRON PF 4 MG/2 ML VIAL. ONE (11:01)
[2021-05-25] MEDS ORDERED: LIDOCAINE WITH 8.4% SOD BICARB 3 ML DISP.SYRIN. IJ ONE (11:45)
[2021-05-25] MEDS ORDERED: fentaNYL PF VIAL 100 MCG/2 ML VIAL IV ONE (11:45)
[2021-05-25] MEDS ORDERED: MIDAZOLAM HCL/PF 2 MG/2 ML VIAL. IV ONE (11:45)
--- NOTE | 2021-05-25 12:10 | PDOC2 ---
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 AND [employer] 05/25/21 1210: CONSULT Date of Consult Date of Consult DATE: 05/25/21 TIME: 12:06 Reason for Consult Reason for Consult: appendicitis Referring Physician Referring Physician: er Identification/Chief Complaint Chief Complaint abdominal pain Source Source: Chart review, Patient History of Present Illness Reason for Visit: Abdominal pain since Saturday, progressively worsening nausea, chills, pain with movement Past Medical History Cardiovascular: No pertinent hx Past Surgical History Past Surgical History: No pertinent history Family History Family History: No Significant Social History <1 pack per day ALCOHOL: other (2 glasses wine several times a week) Lives: Alone Current Problem List Problem List Problems Medical Problems: (1) Acute appendicitis with generalized peritonitis and abscess Status: Acute Current Medications Current Medications Current Medications Sodium Chloride 1,000 ml @ 1,000 mls/hr Q1H IV Last administered on 05/24/21at 10:56; Start 05/24/21 at 10:45; Stop 05/24/21 at 17:30; Status DC Famotidine (Pepcid Vial) 20 mg 1X ONCE IVP Last administered on 05/24/21at 10 :54; Start 05/24/21 at 10:45; Stop 05/24/21 at 17:30; Status DC Metoclopramide HCl (Reglan Vial) 10 mg 1X ONCE IVP Last administered on 05/24/21at 10:57; Start 05/24/21 at 10:45; Stop 05/24/21 at 17:30; Status DC Hydromorphone HCl (Dilaudid) 1 mg 1X ONCE IVP Last administered on 05/24/21at 11:15; Start 05/24/21 at 11:15; Stop 05/24/21 at 17:30; Status DC Iohexol (Omnipaque 300 Mg/ml) 75 ml 1X ONCE IV ; Start 05/24/21 at 11:15; Stop 05/24/21 at 17:30; Status DC Info (CONTRAST GIVEN -- Rx MONITORING) 1 each PRN DAILY PRN MC SEE COMMENTS; Start 05/24/21 at 11:15; Stop 05/26/21 at 11:14 Ondansetron HCl (Zofran) 4 mg 1X ONCE IM ; Start 05/24/21 at 11:45; Stop 05/24/21 at 17:30; Status DC Ondansetron HCl (Zofran) 4 mg STK-MED ONCE .ROUTE ; Start 05/24/21 at 11:38; Stop 05/24/21 at 11:38; Status DC Aztreonam (Azactam) 2 gm 1X ONCE IVP ; Start 05/24/21 at 12:45; Stop 05/24/21 at 12:46; Status UNV Metronidazole 100 ml @ 100 mls/hr 1X ONCE IV ; Start 05/24/21 at 12:45; Stop 05/24/21 at 13:44; Status Cancel Hydromorphone HCl (Dilaudid) 1 mg 1X ONCE IVP Last administered on 05/24/21at 13:29; Start 05/24/21 at 12:45; Stop 05/24/21 at 17:30; Status DC Piperacillin Sod/ Tazobactam Sod 3.375 gm/Sodium Chloride 50 ml @ 100 mls/hr 1X ONCE IV Last administered on 05/24/21at 13:29; Start 05/24/21 at 13:30; Stop 05/24/21 at 17:30; Status DC Potassium Chloride/Dextrose/ Sod Cl 1,000 ml @ 75 mls/hr [id number] ONCE IV Last administered on 05/24/21at 16:47; Start 05/24/21 at 15:30; Stop 05/25/21 at 04:49; Status DC Ondansetron HCl (Zofran) 4 mg PRN Q4HRS PRN IVP NAUSEA/VOMITING Last administered on 05/25/21at 08:25; Start 05/24/21 at 15:30 Acetaminophen (Tylenol Supp) 650 mg PRN Q6HRS PRN [place] MILD PAIN / TEMP > 100.3'F; Start 05/24/21 at 15:30 Hydromorphone HCl (Dilaudid) 1 mg PRN Q4HRS PRN IVP PAIN Last administered on 05/24/21at 17:00; Start 05/24/21 at 15:30; Stop 05/24/21 at 18:37; Status DC Piperacillin Sod/ Tazobactam Sod 3.375 gm/Sodium Chloride 50 ml @ 100 mls/hr Q6HRS IV Last administered on 05/25/21at 06:19; Start 05/24/21 at 21:00 Hydromorphone HCl (Dilaudid) 1 mg PRN Q3HRS PRN IVP PAIN, 1ST CHOICE Last administered on 05/25/21at 10:23; Start 05/24/21 at 18:45 Prochlorperazine Edisylate (Compazine) 10 mg PRN Q6HRS PRN IV NAUSEA/VOMITING- 2ND CHOICE Last administered on 05/25/21at 02:37; Start 05/24/21 at 18:45 Fentanyl Citrate (Fentanyl 2ml Vial) 50 mcg PRN Q3HRS PRN IVP PAIN, 2ND CHOICE Last administered on 05/25/21at 08:25; Start 05/25/21 at 08:15 Lidocaine HCl (Buffered Lidocaine 1%) 3 ml STK-MED ONCE .ROUTE ; Start 05/25/21 at 10:23; Stop 05/25/21 at 10:23; Status DC Midazolam HCl (Versed) 2 mg STK-MED ONCE .ROUTE ; Start 05/25/21 at 10:46; Stop 05/25/21 at 10:47; Status DC Fentanyl Citrate (Fentanyl 2ml Vial) 100 mcg STK-MED ONCE .ROUTE ; Start at 10:47; Stop 05/25/21 at 10:47; Status DC Ondansetron HCl (Zofran) 4 mg STK-MED ONCE .ROUTE ; Start 05/25/21 at 11:01; St op 05/25/21 at 11:02; Status DC Lidocaine HCl (Buffered Lidocaine 1%) 9 ml 1X ONCE IJ ; Start 05/25/21 at 11:45; Stop 05/25/21 at 11:46; Status DC Midazolam HCl (Versed) 2 mg 1X ONCE IV ; Start 05/25/21 at 11:45; Stop 05/25/21 at 11:46; Status DC Fentanyl Citrate (Fentanyl 2ml Vial) 100 mcg 1X ONCE IV ; Start 05/25/21 at 11:45; Stop 05/25/21 at 11:46; Status DC Active Scripts Active Reported [ control] Unknown Dose PO DAILY [place] 3 Fish Oil Softgel ([place]-3 Fatty Acids/Fish Oil) 1 Each Capsule.dr 1 Each PO DAILY Emergen-C 1,000 mg Variety Pk (Ascorbic Acid/Multivit-Min) 1,000 Mg Effpowdpkt 1,000 Mg PO DAILY Hair Skin Nails-Biotin Gummies (Ascorbic Acid/Vitamin E/Biotin) 1 Each Tab.chew 1 Each PO DAILY Allergies Allergies: Coded Allergies: Penicillins (Verified Adverse Reaction, Intermediate, N/V, 05/24/21) ROS General: YES: Chills, Fatigue PSYCHOLOGICAL ROS: No: Anxiety, Depression Eyes: No Blurry vision, No Double vision HEENT: No: Heacaches, Sore Throat Hematological and Lymphatic: No: Bleeding Problems, Blood Clots Respiratory: No: Cough, Shortness of breath Cardiovascular: No Chest Pain, No Palpitations Gastrointestinal: Yes Other (see hpi) Genitourinary: No Dysuria, No Hematuria Musculoskeletal: No Joint Pain, No Muscle Pain Neurological: No Impaired Coord/balance, No Numbness/Tingling Skin: No Pruritus, No Rash Physical Exam General: Alert, Oriented X3, Cooperative HEENT: Atraumatic, PERRLA Lungs: Clear to auscultation, Normal air movement Heart: Regular rate, Normal S1, Normal S2 Abdomen: Soft, Other (TTP RLQ, drain purulent ) Extremities: No clubbing, No cyanosis Skin: No rashes, No breakdown Neuro: Normal gait, Normal speech Psych/Mental Status: Mental status NL, Mood NL MUSCULOSKELETAL: No deformity Vitals VITALS Vital Signs Date Time Temp Pulse Resp B/P (MAP) Pulse Ox O2 Delivery O2 Flow Rate FiO2 05/25/21 11:38 89 20 99 Nasal Cannula 2.0 05/25/21 11:00 99.1 112/65 (81) 99.1 Labs Labs Laboratory Tests Test 05/24/21 10:30 05/24/21 11:23 05/24/21 11:48 05/24/21 13:48 White Blood Count 11.0 x10^3/uL (4.0-11.0) Red Blood Count 4.16 x10^6/uL (3.50-5.40) Hemoglobin 13.3 g/dL (12.0-15.5) Hematocrit 39.0 % (36.0-47.0) Mean Corpuscular Volume 94 fL (79-100) Mean Corpuscular Hemoglobin 32 pg (25-35) Mean Corpuscular Hemoglobin Concent 34 g/dL (31-37) Red Cell Distribution Width 12.8 % (11.5-14.5) Platelet Count 358 x10^3/uL (140-400) Neutrophils (%) (Auto) 82 % (31-73) Lymphocytes (%) (Auto) 13 % (24-48) Monocytes (%) (Auto) 4 % (0-9) Eosinophils (%) (Auto) 0 % (0-3) Basophils (%) (Auto) 1 % (0-3) Neutrophils # (Auto) 9.1 x10^3/uL (1.8-7.7) Lymphocytes # (Auto) 1.4 x10^3/uL (1.0-4.8) Monocytes # (Auto) 0.4 x10^3/uL (0.0-1.1) Eosinophils # (Auto) 0.0 x10^3/uL (0.0-0.7) Basophils # (Auto) 0.1 x10^3/uL (0.0-0.2) Sodium Level 134 mmol/L (136-145) Potassium Level 3.6 mmol/L (3.5-5.1) Chloride Level 102 mmol/L (98-107) Carbon Dioxide Level 21 mmol/L (21-32) Anion Gap 11 (6-14) Blood Urea Nitrogen 9 mg/dL (7-20) Creatinine 0.8 mg/dL (0.6-1.0) Estimated GFR (Cockcroft-Gault) 76.2 BUN/Creatinine Ratio 11 (6-20) Glucose Level 120 mg/dL (70-99) Calcium Level 8.1 mg/dL (8.5-10.1) Total Bilirubin 0.6 mg/dL (0.2-1.0) Aspartate Amino Transf (AST/SGOT) 18 U/L (15-37) Alanine Aminotransferase (ALT/SGPT) 27 U/L (14-59) Alkaline Phosphatase 41 U/L (46-116) Creatine Kinase 232 U/L (26-192) C-Reactive Protein, Quantitative 91.1 mg/L (0-3.3) Total Protein 7.2 g/dL (6.4-8.2) Albumin 3.2 g/dL (3.4-5.0) Albumin/Globulin Ratio 0.8 (1.0-1.7) Lipase 46 U/L (73-393) Urine Collection Type Unknown Urine Color Yellow Urine Clarity Clear Urine pH 6.5 (<5.0-8.0) Urine Specific [place] 1.020 (1.000-1.030) Urine Protein Negative mg/dL (NEG-TRACE) Urine Glucose (UA) Negative mg/dL (NEG) Urine Ketones (Stick) >=80 mg/dL (NEG) Urine Blood Negative (NEG) Urine Nitrite Negative (NEG) Urine Bilirubin Negative (NEG) Urine Urobilinogen Dipstick 0.2 mg/dL (0.2 mg/dL) Urine Leukocyte Esterase Moderate (NEG) Urine RBC 0 /HPF (0-2) Urine WBC 11-20 /HPF (0-4) Urine Squamous Epithelial Cells Many /LPF Urine Bacteria Moderate /HPF (0-FEW) Urine Mucus Marked /LPF Urine Opiates Screen Pos (NEG) Urine Methadone Screen Neg (NEG) Urine Barbiturates Neg (NEG) Urine Phencyclidine Screen Neg (NEG) Urine Amphetamine/Methamphetamine Neg (NEG) Urine Benzodiazepines Screen Neg (NEG) Urine Cocaine Screen Neg (NEG) Urine Cannabinoids Screen Neg (NEG) Urine Ethyl Alcohol Neg (NEG) Bedside Urine HCG, Qualitative Hcg negative (Negative) SARS-CoV-2 RNA ([facility]OUR) Negative (Negative) SARS-CoV-2 Antigen (Rapid) Negative (NEGATIVE) Test 05/24/21 15:25 05/25/21 06:59 Glucose (Fingerstick) 118 mg/dL (70-99) White Blood Count 15.2 x10^3/uL (4.0-11.0) Red Blood Count 3.80 x10^6/uL (3.50-5.40) Hemoglobin 12.3 g/dL (12.0-15.5) Hematocrit 36.0 % (36.0-47.0) Mean Corpuscular Volume 95 fL (79-100) Mean Corpuscular Hemoglobin 32 pg (25-35) Mean Corpuscular Hemoglobin Concent 34 g/dL (31-37) Red Cell Distribution Width 13.1 % (11.5-14.5) Platelet Count 296 x10^3/uL (140-400) Neutrophils (%) (Auto) 90 % (31-73) Lymphocytes (%) (Auto) 6 % (24-48) Monocytes (%) (Auto) 4 % (0-9) Eosinophils (%) (Auto) 0 % (0-3) Basophils (%) (Auto) 0 % (0-3) Neutrophils # (Auto) 13.7 x10^3/uL (1.8-7.7) Lymphocytes # (Auto) 0.9 x10^3/uL (1.0-4.8) Monocytes # (Auto) 0.6 x10^3/uL (0.0-1.1) Eosinophils # (Auto) 0.1 x10^3/uL (0.0-0.7) Basophils # (Auto) 0.0 x10^3/uL (0.0-0.2) Sodium Level 134 mmol/L (136-145) Potassium Level 3.5 mmol/L (3.5-5.1) Chloride Level 102 mmol/L (98-107) Carbon Dioxide Level 25 mmol/L (21-32) Anion Gap 7 (6-14) Blood Urea Nitrogen 9 mg/dL (7-20) Creatinine 0.9 mg/dL (0.6-1.0) Estimated GFR (Cockcroft-Gault) 66.5 BUN/Creatinine Ratio 10 (6-20) Glucose Level 122 mg/dL (70-99) Calcium Level 7.4 mg/dL (8.5-10.1) Total Bilirubin 0.7 mg/dL (0.2-1.0) Aspartate Amino Transf (AST/SGOT) 15 U/L (15-37) Alanine Aminotransferase (ALT/SGPT) 21 U/L (14-59) Alkaline Phosphatase 45 U/L (46-116) Total Protein 6.3 g/dL (6.4-8.2) Albumin 2.3 g/dL (3.4-5.0) Albumin/Globulin Ratio 0.6 (1.0-1.7) Laboratory Tests Test 05/24/21 13:48 05/24/21 15:25 05/25/21 06:59 SARS-CoV-2 RNA ([facility]OUR) Negative (Negative) SARS-CoV-2 Antigen (Rapid) Negative (NEGATIVE) Glucose (Fingerstick) 118 mg/dL (70-99) White Blood Count 15.2 x10^3/uL (4.0-11.0) Red Blood Count 3.80 x10^6/uL (3.50-5.40) Hemoglobin 12.3 g/dL (12.0-15.5) Hematocrit 36.0 % (36.0-47.0) Mean Corpuscular Volume 95 fL (79-100) Mean Corpuscular Hemoglobin 32 pg (25-35) Mean Corpuscular Hemoglobin Concent 34 g/dL (31-37) Red Cell Distribution Width 13.1 % (11.5-14.5) Platelet Count 296 x10^3/uL (140-400) Neutrophils (%) (Auto) 90 % (31-73) Lymphocytes (%) (Auto) 6 % (24-48) Monocytes (%) (Auto) 4 % (0-9) Eosinophils (%) (Auto) 0 % (0-3) Basophils (%) (Auto) 0 % (0-3) Neutrophils # (Auto) 13.7 x10^3/uL (1.8-7.7) Lymphocytes # (Auto) 0.9 x10^3/uL (1.0-4.8) Monocytes # (Auto) 0.6 x10^3/uL (0.0-1.1) Eosinophils # (Auto) 0.1 x10^3/uL (0.0-0.7) Basophils # (Auto) 0.0 x10^3/uL (0.0-0.2) Sodium Level 134 mmol/L (136-145) Potassium Level 3.5 mmol/L (3.5-5.1) Chloride Level 102 mmol/L (98-107) Carbon Dioxide Level 25 mmol/L (21-32) Anion Gap 7 (6-14) Blood Urea Nitrogen 9 mg/dL (7-20) Creatinine 0.9 mg/dL (0.6-1.0) Estimated GFR (Cockcroft-Gault) 66.5 BUN/Creatinine Ratio 10 (6-20) Glucose Level 122 mg/dL (70-99) Calcium Level 7.4 mg/dL (8.5-10.1) Total Bilirubin 0.7 mg/dL (0.2-1.0) Aspartate Amino Transf (AST/SGOT) 15 U/L (15-37) Alanine Aminotransferase (ALT/SGPT) 21 U/L (14-59) Alkaline Phosphatase 45 U/L (46-116) Total Protein 6.3 g/dL (6.4-8.2) Albumin 2.3 g/dL (3.4-5.0) Albumin/Globulin Ratio 0.6 (1.0-1.7) Assessment/Plan Assessment/Plan Ruptured appendicitis with abscess drain, abx if improves plan lap appy in 4-6 weeks SHON HUMPHRIES MD 05/25/212127: CONSULT Assessment/Plan Assessment/Plan Patient just back from drain placement. C/O RLQ pain. Plan drain with IV abx with interval appendectomy in 4 to 6 weeks. Agree with Meme's assessment and plan YANE LIM APRN May 25, 2021 12:10 SHON HUMPHRIES MD May 25, 2021 21:28
[2021-05-25] MEDS: ACETAMINOPHEN 325 MG TABLET. PO PRN ×2 (14:57→19:16)
[2021-05-25] MEDS: LACTOBACILLUS RHAMNOSUS GG 1 CAPSULE. PO SCH (22:05)
[2021-05-26] MEDS: PIPERACILLIN/TAZOBACTAM 3.375 GM in IV NORMAL SALINE 50ML 50 ML IV SCH ×3 (00:19→12:00)
[2021-05-26] MEDS: ACETAMINOPHEN 325 MG TABLET. PO PRN ×4 (00:22→20:30)
[2021-05-26 03:00] VITALS: BP 109/67
[2021-05-26 07:01] VITALS: BP 103/64
[2021-05-26 07:34] LABS: BASO % 0 % (0-3); EOS # 0.2 x10^3/uL (0.0-0.7); EOS % 1 % (0-3); HEMOGLOBIN 11.9 g/dL (12.0-15.5); LYMPH # 0.7 x10^3/uL (1.0-4.8); LYMPH % 5 % (24-48); MEAN CORPUSCULAR HEMOGLOBIN 32 pg (25-35); MEAN CORPUSCULAR HGB CONC 34 g/dL (31-37); MEAN CORPUSCULAR VOLUME 95 fL (79-100); MONO # 0.5 x10^3/uL (0.0-1.1); MONO % 3 % (0-9); NEUT # 13.3 x10^3/uL (1.8-7.7); NEUT % 91 % (31-73); PLATELET COUNT 328 x10^3/uL (140-400); RED BLOOD COUNT 3.67 x10^6/uL (3.50-5.40); RED CELL DISTRIBUTION WIDTH 12.8 % (11.5-14.5); WHITE BLOOD COUNT 14.7 x10^3/uL (4.0-11.0)
[2021-05-26 08:01] LABS: ALBUMIN 2.3 g/dL (3.4-5.0); ALBUMIN/GLOBULIN RATIO 0.5 (1.0-1.7); CALCIUM 8.1 mg/dL (8.5-10.1); CREATININE 0.8 mg/dL (0.6-1.0); GFR 76.2; POTASSIUM 3.3 mmol/L (3.5-5.1); TOTAL BILIRUBIN 0.5 mg/dL (0.2-1.0); TOTAL PROTEIN 6.6 g/dL (6.4-8.2)
[2021-05-26] MEDS: LACTOBACILLUS RHAMNOSUS GG 1 CAPSULE. PO SCH ×2 (10:00→21:35)
--- NOTE | 2021-05-26 10:59 | NUR ---
SW following. Discussed with RN, pt from home with family, room air, NPO, COVID-19 negative. Pt had drain placed yesterday. Med Assist following for self pay status. SW will continue to follow.
[2021-05-26 11:06] VITALS: BP 118/71
--- NOTE | 2021-05-26 12:45 | PDOC ---
SURGICAL PROGRESS NOTE DATE: 05/26/21 TIME: 12:44 Subjective overall does feel better tolerating diet having loose stools Vital Signs Vital Signs Date Time Temp Pulse Resp B/P (MAP) Pulse Ox O2 Delivery O2 Flow Rate FiO2 05/26/21 11:06 98.8 82 18 118/71 (87) 96 Room Air 98.8 05/25/21 11:38 2.0 I&O Intake and Output 05/26/21 07:00 Intake Total 360 ml Output Total 60 ml Balance 300 ml Intake Oral 360 ml Output Drainage Total 60 ml # Voids 1 # Bowel Movements 2 General: Alert, Oriented X3, Cooperative Abdomen: Soft, Other (drains cloudy serous ,ttp lower abdomen ) Labs Laboratory Tests Test 05/24/21 13:48 05/24/21 15:25 05/25/21 06:59 05/26/21 06:35 SARS-CoV-2 RNA ([facility]) Negative (Negative) SARS-CoV-2 Antigen (Rapid) Negative (NEGATIVE) Glucose (Fingerstick) 118 mg/dL (70-99) White Blood Count 15.2 x10^3/uL (4.0-11.0) 14.7 x10^3/uL (4.0-11.0) Red Blood Count 3.80 x10^6/uL (3.50-5.40) 3.67 x10^6/uL (3.50-5.40) Hemoglobin 12.3 g/dL (12.0-15.5) 11.9 g/dL (12.0-15.5) Hematocrit 36.0 % (36.0-47.0) 35.0 % (36.0-47.0) Mean Corpuscular Volume 95 fL (79-100) 95 fL (79-100) Mean Corpuscular Hemoglobin 32 pg (25-35) 32 pg (25-35) Mean Corpuscular Hemoglobin Concent 34 g/dL (31-37) 34 g/dL (31-37) Red Cell Distribution Width 13.1 % (11.5-14.5) 12.8 % (11.5-14.5) Platelet Count 296 x10^3/uL (140-400) 328 x10^3/uL (140-400) Neutrophils (%) (Auto) 90 % (31-73) 91 % (31-73) Lymphocytes (%) (Auto) 6 % (24-48) 5 % (24-48) Monocytes (%) (Auto) 4 % (0-9) 3 % (0-9) Eosinophils (%) (Auto) 0 % (0-3) 1 % (0-3) Basophils (%) (Auto) 0 % (0-3) 0 % (0-3) Neutrophils # (Auto) 13.7 x10^3/uL (1.8-7.7) 13.3 x10^3/uL (1.8-7.7) Lymphocytes # (Auto) 0.9 x10^3/uL (1.0-4.8) 0.7 x10^3/uL (1.0-4.8) Monocytes # (Auto) 0.6 x10^3/uL (0.0-1.1) 0.5 x10^3/uL (0.0-1.1) Eosinophils # (Auto) 0.1 x10^3/uL (0.0-0.7) 0.2 x10^3/uL (0.0-0.7) Basophils # (Auto) 0.0 x10^3/uL (0.0-0.2) 0.0 x10^3/uL (0.0-0.2) Sodium Level 134 mmol/L (136-145) 137 mmol/L (136-145) Potassium Level 3.5 mmol/L (3.5-5.1) 3.3 mmol/L (3.5-5.1) Chloride Level 102 mmol/L (98-107) 103 mmol/L (98-107) Carbon Dioxide Level 25 mmol/L (21-32) 23 mmol/L (21-32) Anion Gap 7 (6-14) 11 (6-14) Blood Urea Nitrogen 9 mg/dL (7-20) 10 mg/dL (7-20) Creatinine 0.9 mg/dL (0.6-1.0) 0.8 mg/dL (0.6-1.0) Estimated GFR (Cockcroft-Gault) 66.5 76.2 BUN/Creatinine Ratio 10 (6-20) 13 (6-20) Glucose Level 122 mg/dL (70-99) 90 mg/dL (70-99) Calcium Level 7.4 mg/dL (8.5-10.1) 8.1 mg/dL (8.5-10.1) Total Bilirubin 0.7 mg/dL (0.2-1.0) 0.5 mg/dL (0.2-1.0) Aspartate Amino Transf (AST/SGOT) 15 U/L (15-37) 14 U/L (15-37) Alanine Aminotransferase (ALT/SGPT) 21 U/L (14-59) 21 U/L (14-59) Alkaline Phosphatase 45 U/L (46-116) 49 U/L (46-116) Total Protein 6.3 g/dL (6.4-8.2) 6.6 g/dL (6.4-8.2) Albumin 2.3 g/dL (3.4-5.0) 2.3 g/dL (3.4-5.0) Albumin/Globulin Ratio 0.6 (1.0-1.7) 0.5 (1.0-1.7) Laboratory Tests Test 05/26/21 06:35 White Blood Count 14.7 x10^3/uL (4.0-11.0) Red Blood Count 3.67 x10^6/uL (3.50-5.40) Hemoglobin 11.9 g/dL (12.0-15.5) Hematocrit 35.0 % (36.0-47.0) Mean Corpuscular Volume 95 fL (79-100) Mean Corpuscular Hemoglobin 32 pg (25-35) Mean Corpuscular Hemoglobin Concent 34 g/dL (31-37) Red Cell Distribution Width 12.8 % (11.5-14.5) Platelet Count 328 x10^3/uL (140-400) Neutrophils (%) (Auto) 91 % (31-73) Lymphocytes (%) (Auto) 5 % (24-48) Monocytes (%) (Auto) 3 % (0-9) Eosinophils (%) (Auto) 1 % (0-3) Basophils (%) (Auto) 0 % (0-3) Neutrophils # (Auto) 13.3 x10^3/uL (1.8-7.7) Lymphocytes # (Auto) 0.7 x10^3/uL (1.0-4.8) Monocytes # (Auto) 0.5 x10^3/uL (0.0-1.1) Eosinophils # (Auto) 0.2 x10^3/uL (0.0-0.7) Basophils # (Auto) 0.0 x10^3/uL (0.0-0.2) Sodium Level 137 mmol/L (136-145) Potassium Level 3.3 mmol/L (3.5-5.1) Chloride Level 103 mmol/L (98-107) Carbon Dioxide Level 23 mmol/L (21-32) Anion Gap 11 (6-14) Blood Urea Nitrogen 10 mg/dL (7-20) Creatinine 0.8 mg/dL (0.6-1.0) Estimated GFR (Cockcroft-Gault) 76.2 BUN/Creatinine Ratio 13 (6-20) Glucose Level 90 mg/dL (70-99) Calcium Level 8.1 mg/dL (8.5-10.1) Total Bilirubin 0.5 mg/dL (0.2-1.0) Aspartate Amino Transf (AST/SGOT) 14 U/L (15-37) Alanine Aminotransferase (ALT/SGPT) 21 U/L (14-59) Alkaline Phosphatase 49 U/L (46-116) Total Protein 6.6 g/dL (6.4-8.2) Albumin 2.3 g/dL (3.4-5.0) Albumin/Globulin Ratio 0.5 (1.0-1.7) Problem List Problems Medical Problems: (1) Acute appendicitis with generalized peritonitis and abscess Status: Acute Assessment/Plan continue abx, drain Justicifation of Admission Dx: Justifications for Admission: Justification of Admission Dx: Yes Sepsis: Infection YANE LIM CANOPY STRINGER May 26, 2021 12:45
--- NOTE | 2021-05-26 13:46 | PDOC ---
[facility] PROGRESS NOTE Date of Service DOS: DATE: 05/26/21 TIME: 13:39 Chief Complaint Chief Complaint Appendicitis with ruptured abscess and appendicoliths (Interval appendectomy in 4-6 weeks) Tobacco use History of Present Illness History of Present Illness 05/26/2021: Pt was seen and examined. Chart reviewed. Discussed with RN and family bedside. Pt appears comfortable and talkative. Yellow straw colored fluid noted to SALOME drain at bedside. Pt endorses NBNB diarrhea 2/2 zosyn. States "I feel much better". 05-25 intractable abdominal pain - acute appendicitis. Has PCN allergy listed notes only nausea as she has received Zosyn with no problems. We will continue every 6 hours. Discussed with radiology there is no clear sign of perforation and no clear abscess area to drain, likely pelvic fluid. Given severity of pain likely this is acute appendicitis without perforation. Tobacco use - counseled on cessation, she is cutting back on vaping. NPO inpatient/ place transgluteal drain d/w rn Vitals/I&O Vitals/I&O: Vital Signs Date Time Temp Pulse Resp B/P (MAP) Pulse Ox O2 Delivery O2 Flow Rate FiO2 05/26/21 11:06 98.8 82 18 118/71 (87) 96 Room Air 98.8 05/25/21 11:38 2.0 I & O 0 05/25/21 05/25/21 05/26/21 15:00 23:00 07:00 Intake Total 360 ml Output Total 60 ml Balance 300 ml Physical Exam Physical Exam: Pt in NAD. Appears pleasant and talkative to family. General: Alert, Oriented X3, Cooperative Heart: Regular rate, Normal S1, Normal S2 Lungs: Clear Abdomen: Soft, Other (drains cloudy serous ,ttp lower abdomen ) Extremities: No clubbing, No cyanosis, No edema (No lower extremity edema) Skin: No rashes, Other (Yellow straw colored fluid noted to SALOME drain at bedside) Labs Labs: Laboratory Tests Test 05/26/21 06:35 White Blood Count 14.7 x10^3/uL (4.0-11.0) Red Blood Count 3.67 x10^6/uL (3.50-5.40) Hemoglobin 11.9 g/dL (12.0-15.5) Hematocrit 35.0 % (36.0-47.0) Mean Corpuscular Volume 95 fL (79-100) Mean Corpuscular Hemoglobin 32 pg (25-35) Mean Corpuscular Hemoglobin Concent 34 g/dL (31-37) Red Cell Distribution Width 12.8 % (11.5-14.5) Platelet Count 328 x10^3/uL (140-400) Neutrophils (%) (Auto) 91 % (31-73) Lymphocytes (%) (Auto) 5 % (24-48) Monocytes (%) (Auto) 3 % (0-9) Eosinophils (%) (Auto) 1 % (0-3) Basophils (%) (Auto) 0 % (0-3) Neutrophils # (Auto) 13.3 x10^3/uL (1.8-7.7) Lymphocytes # (Auto) 0.7 x10^3/uL (1.0-4.8) Monocytes # (Auto) 0.5 x10^3/uL (0.0-1.1) Eosinophils # (Auto) 0.2 x10^3/uL (0.0-0.7) Basophils # (Auto) 0.0 x10^3/uL (0.0-0.2) Sodium Level 137 mmol/L (136-145) Potassium Level 3.3 mmol/L (3.5-5.1) Chloride Level 103 mmol/L (98-107) Carbon Dioxide Level 23 mmol/L (21-32) Anion Gap 11 (6-14) Blood Urea Nitrogen 10 mg/dL (7-20) Creatinine 0.8 mg/dL (0.6-1.0) Estimated GFR (Cockcroft-Gault) 76.2 BUN/Creatinine Ratio 13 (6-20) Glucose Level 90 mg/dL (70-99) Calcium Level 8.1 mg/dL (8.5-10.1) Total Bilirubin 0.5 mg/dL (0.2-1.0) Aspartate Amino Transf (AST/SGOT) 14 U/L (15-37) Alanine Aminotransferase (ALT/SGPT) 21 U/L (14-59) Alkaline Phosphatase 49 U/L (46-116) Total Protein 6.6 g/dL (6.4-8.2) Albumin 2.3 g/dL (3.4-5.0) Albumin/Globulin Ratio 0.5 (1.0-1.7) Review of Systems Review of Systems: Appendicitis Nausea Diarrhea Assessment and Plan Assessmemt and Plan Problems Medical Problems: (1) Acute appendicitis with generalized peritonitis and abscess Status: Acute Appendicitis with ruptured abscess and appendicoliths Tobacco use Plan: Anbx (Levaquin and flagyl) PRN pain meds and zofran DVT prophylaxis Trend labs Home meds Consider advancing diet Appreciate further input from subspecialty team Full code Dispo pending labs, vitals, subspecialist input Comment Review of Relevant I have reviewed the following items reuben (where applicable) has been applied. Medications: Current Medications Medications (Trade) Dose Ordered Sig/Louisa Route PRN Reason Start Time Stop Time Status Last Admin Dose Admin Acetaminophen (Tylenol) 650 mg PRN Q4HRS PRN PO MILD PAIN / TEMP > 100.3'F 05/25/21 14:45 05/26/21 10:00 Lactobacillus Rhamnosus (Culturelle) 1 cap BID PO 05/25/21 21:00 05/26/21 10:00 Justifications for Admission Other Justification ANUP CARVALHO III DO May 26, 2021 13:46
[2021-05-26] MEDS ORDERED: metroNIDAZOLE 500 MG TABLET PO SCH (14:00)
--- NOTE | 2021-05-26 14:11 | RAD ---
CT-guided drainage, pelvic fluid collection Clinical Indication: Perforated appendicitis, developing abscess Sedation: Conscious sedation was administered for 30 minutes. The patient was monitored by a qualified independent observer throughout the time of sedation. Please refer to the medical record for exact doses of medications utilized to achieve moderate sedation. Sterility: The procedure was performed in its entirety using appropriate elements of sterile technique. Consent: The procedure was explained in its entirety to the patient or the patients designated field representative by a member of the treatment team, including a discussion of the risks, benefits and commonly accepted alternatives to the procedure, as well as the expected consequences of no therapy whatsoever. Discussion of the risks included, but was not limited to, those that are most frequent and those that are rare but possibly severe or life-threatening, as well as the possibility of unforeseen complications. Technique and Findings: The patient was placed in the prone position. A timeout procedure was performed. The right buttock was prepped and draped using maximum sterile barrier technique. 1% lidocaine was administered for local anesthesia. CT imaging redemonstrates a fluid collection in the deep pelvis. 1% lidocaine was using a transgluteal approach a 17-gauge needles advanced into the collection. Purulent material was aspirated. A guidewire was advanced into the collection over which following dilatation a 10 Uzbek drain was placed. The catheter secured in place. Sterile dressings were applied. No immediate complications were identified. Impression: CT-guided drainage, deep pelvic fluid collection via transgluteal approach PQRS Compliance Statement: One or more of the following individualized dose reduction techniques were utilized for this examination: 1. Automated exposure control 2. Adjustment of the mA and/or kV according to patient size 3. Use of iterative reconstruction technique
[2021-05-26 15:06] VITALS: BP 110/64
[2021-05-26] MEDS ORDERED: POTASSIUM CHLORIDE 20 MEQ TABLET.ER. PO ONE (17:00)
[2021-05-26 19:00] VITALS: BP 109/70
[2021-05-26 23:00] VITALS: BP 116/66
[2021-05-27 03:00] VITALS: BP 124/81
--- NOTE | 2021-05-27 06:10 | NUR ---
Per Pharmacy hold 0600 Flagyl due to not being administered until 2029 yesterday due to no IV access.
[2021-05-27 07:00] VITALS: BP 131/71
--- NOTE | 2021-05-27 08:53 | PDOC ---
YANE LIM [employer] 05/27/21 0853: SURGICAL PROGRESS NOTE DATE: 05/27/21 TIME: 08:53 Subjective nausea with eating loose stool overall pain improved Vital Signs Vital Signs Date Time Temp Pulse Resp B/P (MAP) Pulse Ox O2 Delivery O2 Flow Rate FiO2 05/27/21 07:00 98.9 74 18 131/71 (91) 100 Room Air 98.9 05/26/21 20:00 2.0 I&O Intake and Output 05/27/21 07:00 Intake Total 420 ml Balance 420 ml Intake Oral 420 ml # Voids 3 # Bowel Movements 12 General: Alert, Oriented X3, Cooperative Abdomen: Soft, Other (drain in place) Labs Laboratory Tests Test 05/26/21 06:35 White Blood Count 14.7 x10^3/uL (4.0-11.0) Red Blood Count 3.67 x10^6/uL (3.50-5.40) Hemoglobin 11.9 g/dL (12.0-15.5) Hematocrit 35.0 % (36.0-47.0) Mean Corpuscular Volume 95 fL (79-100) Mean Corpuscular Hemoglobin 32 pg (25-35) Mean Corpuscular Hemoglobin Concent 34 g/dL (31-37) Red Cell Distribution Width 12.8 % (11.5-14.5) Platelet Count 328 x10^3/uL (140-400) Neutrophils (%) (Auto) 91 % (31-73) Lymphocytes (%) (Auto) 5 % (24-48) Monocytes (%) (Auto) 3 % (0-9) Eosinophils (%) (Auto) 1 % (0-3) Basophils (%) (Auto) 0 % (0-3) Neutrophils # (Auto) 13.3 x10^3/uL (1.8-7.7) Lymphocytes # (Auto) 0.7 x10^3/uL (1.0-4.8) Monocytes # (Auto) 0.5 x10^3/uL (0.0-1.1) Eosinophils # (Auto) 0.2 x10^3/uL (0.0-0.7) Basophils # (Auto) 0.0 x10^3/uL (0.0-0.2) Sodium Level 137 mmol/L (136-145) Potassium Level 3.3 mmol/L (3.5-5.1) Chloride Level 103 mmol/L (98-107) Carbon Dioxide Level 23 mmol/L (21-32) Anion Gap 11 (6-14) Blood Urea Nitrogen 10 mg/dL (7-20) Creatinine 0.8 mg/dL (0.6-1.0) Estimated GFR (Cockcroft-Gault) 76.2 BUN/Creatinine Ratio 13 (6-20) Glucose Level 90 mg/dL (70-99) Calcium Level 8.1 mg/dL (8.5-10.1) Total Bilirubin 0.5 mg/dL (0.2-1.0) Aspartate Amino Transf (AST/SGOT) 14 U/L (15-37) Alanine Aminotransferase (ALT/SGPT) 21 U/L (14-59) Alkaline Phosphatase 49 U/L (46-116) Total Protein 6.6 g/dL (6.4-8.2) Albumin 2.3 g/dL (3.4-5.0) Albumin/Globulin Ratio 0.5 (1.0-1.7) Problem List Problems Medical Problems: (1) Acute appendicitis with generalized peritonitis and abscess Status: Acute Assessment/Plan abx, drain Justicifation of Admission Dx: Justifications for Admission: Justification of Admission Dx: Yes Sepsis: Infection SHON HUMPHRIES MD 05/27/21 1044: SURGICAL PROGRESS NOTE Assessment/Plan Clinically improving continue antibiotics drain. Agree with Peters assessment plan potentially repeat CT scan on Saturday CARINAYANE Hinkle APRN May 27, 2021 08:53 SHON HUMPHRIES MD May 27, 2021 10:44
--- NOTE | 2021-05-27 09:56 | PDOC ---
[facility] PROGRESS NOTE Date of Service DOS: DATE: 05/27/21 TIME: 09:43 Chief Complaint Chief Complaint Appendicitis with ruptured abscess and appendicoliths (Interval appendectomy in 4-6 weeks) Tobacco use History of Present Illness History of Present Illness 05/27/2021: Pt was seen and examined. Chart reviewed. Pt appears comfortable and talkative. Pt states that her last BM was hour ago. Her diarrhea has improved after swicthing off zosyn to to levaquin/flagyl. Pt does endorse nausea hours after a meal yesterday. Also reports mild abdominal distension. Pt is looking forward to discharge and is curious how long SALOME drain will be in place. She notes a very small amount of straw colored fluid. Pt reports improving pain while taking tylenol. States no previous opioid use prior to current admission. 05/26/2021: Pt was seen and examined. Chart reviewed. Discussed with RN and family bedside. Pt appears comfortable and talkative. Yellow straw colored fluid noted to SALOME drain at bedside. Pt endorses NBNB diarrhea 2/2 zosyn. States "I feel much better". 9-30 intractable abdominal pain - acute appendicitis. Has PCN allergy listed notes only nausea as she has received Zosyn with no problems. We will continue every 6 hours. Discussed with radiology there is no clear sign of perforation and no clear abscess area to drain, likely pelvic fluid. Given severity of pain likely this is acute appendicitis without perforation. Tobacco use - counseled on cessation, she is cutting back on vaping. NPO inpatient/ place transgluteal drain d/w rn Vitals/I&O Vitals/I&O: Vital Signs Date Time Temp Pulse Resp B/P (MAP) Pulse Ox O2 Delivery O2 Flow Rate FiO2 05/27/21 07:00 98.9 74 18 131/71 (91) 100 Room Air 98.9 05/26/21 20:00 2.0 I & O 05/26/21 05/26/21 05/27/21 15:00 23:00 07:00 Intake Total 180 ml 240 ml Balance 180 ml 240 ml Physical Exam Physical Exam: Pt in NAD. Appears pleasant and talkative General: Alert, Oriented X3, Cooperative, No acute distress Heart: Regular rate, Normal S1, Normal S2 Lungs: Clear Abdomen: Soft, Other (drain in place to SALOME drain with small amount of serosanguinous fluid. Mild abdominal distension. ) Extremities: No clubbing, No cyanosis, No edema (No lower extremity edema) Skin: No rashes Review of Systems Review of Systems: Abdominal distension Nausea Assessment and Plan Assessmemt and Plan Problems Medical Problems: (1) Acute appendicitis with generalized peritonitis and abscess Status: Acute Appendicitis with ruptured abscess and appendicoliths (Interval appendectomy in 4-6 weeks) Tobacco use Plan: Appreciate further input from subspecialty team Anbx (Levaquin and flagyl) PRN pain meds and zofran DVT prophylaxis Trend labs Home meds Encourage PO intake Full code Dispo pending labs, vitals, subspecialist input Comment Review of Relevant I have reviewed the following items reuben (where applicable) has been applied. Medications: Current Medications Medications (Trade) Dose Ordered Sig/Louisa Route PRN Reason Start Time Stop Time Status Last Admin Dose Admin Levofloxacin/ Dextrose 100 ml @ 100 mls/hr Q24H IV 05/26/21 14:00 05/26/21 15:17 Metronidazole 100 ml @ 100 mls/hr Q8HRS IV 05/26/21 14:00 05/26/21 20:30 Potassium Chloride (Klor-Con) 40 meq 1X ONCE PO 05/26/21 17:00 05/26/21 17:01 DC 05/26/21 17:55 Justifications for Admission Other Justification ANUP CARVALHO III DO May 27, 2021 09:56
[2021-05-27] MEDS: LACTOBACILLUS RHAMNOSUS GG 1 CAPSULE. PO SCH ×2 (10:34→21:41)
[2021-05-27] MEDS: ACETAMINOPHEN 325 MG TABLET. PO PRN ×3 (10:36→21:41)
[2021-05-27 11:00] VITALS: BP 125/77
[2021-05-27 15:00] VITALS: BP 102/78
[2021-05-27 19:00] VITALS: BP 135/76
[2021-05-27 23:00] VITALS: BP 128/77
[2021-05-28 07:00] VITALS: BP 122/76
--- NOTE | 2021-05-28 09:26 | PDOC ---
YANE LIM APRN 05/28/21 0926: SURGICAL PROGRESS NOTE DATE: 05/28/21 TIME: 09:24 Subjective significant loose stools--has mainly been on liquid diet overall feels much improved Vital Signs Vital Signs Date Time Temp Pulse Resp B/P (MAP) Pulse Ox O2 Delivery O2 Flow Rate FiO2 05/28/21 07:00 98.3 75 16 122/76 (91) 99 Room Air 98.3 I&O Intake and Output0 05/28/21 07:00 Intake Total 240 ml Balance 240 ml Intake Oral 240 ml # Bowel Movements 2 General: Alert, Cooperative Abdomen: Soft, Other (scant serous fluid in drain) Problem List Problems Medical Problems: (1) Acute appendicitis with generalized peritonitis and abscess Status: Acute Assessment/Plan advance to bland diet, may help stools ct saturday to eval for abscess resolution/drain removal Justicifation of Admission Dx: Justifications for Admission: Justification of Admission Dx: Yes Sepsis: Infection SHON HUMPHRIES MD 05/28/21 1000: SURGICAL PROGRESS NOTE Assessment/Plan Vital signs stable afebrile clinically improving agree with Fran assessment and plan YANE LIM APRN May 28, 2021 09:26 SHON HUMPHRIES MD May 28, 2021 10:00
[2021-05-28] MEDS: LACTOBACILLUS RHAMNOSUS GG 1 CAPSULE. PO SCH ×2 (09:38→21:07)
[2021-05-28 11:00] VITALS: BP 129/81
--- NOTE | 2021-05-28 11:29 | NUR ---
Dr. Morin order stat CBC and BMP, order has been placed in MAR
--- NOTE | 2021-05-28 13:49 | PDOC ---
[facility] PROGRESS NOTE Date of Service DOS: DATE: 05/28/21 TIME: 13:40 Chief Complaint Chief Complaint Appendicitis with ruptured abscess and appendicoliths (Interval appendectomy in 4-6 weeks) Tobacco use Diarrhea History of Present Illness History of Present Illness 05/28/2021: Pt seen and examined. Chart reviewed. Discussed with RN. Pt is feeling much better today. Serous fluid in SALOME drain. SALOME drain site clean, dry, intact. Pt's abdomen less distended. 05/27/2021: Pt was seen and examined. Chart reviewed. Pt appears comfortable and talkative. Pt states that her last BM was hour ago. Her diarrhea has improved after swicthing off zosyn to to levaquin/flagyl. Pt does endorse nausea hours after a meal yesterday. Also reports mild abdominal distension. Pt is looking forward to discharge and is curious how long SALOME drain will be in place. She notes a very small amount of straw colored fluid. Pt reports improving pain while taking tylenol. States no previous opioid use prior to current admission. 05/26/2021: Pt was seen and examined. Chart reviewed. Discussed with RN and family bedside. Pt appears comfortable and talkative. Yellow straw colored fluid noted to SALOME drain at bedside. Pt endorses NBNB diarrhea 2/2 zosyn. States "I feel much better". 9-30 intractable abdominal pain - acute appendicitis. Has PCN allergy listed notes only nausea as she has received Zosyn with no problems. We will continue every 6 hours. Discussed with radiology there is no clear sign of perforation and no clear abscess area to drain, likely pelvic fluid. Given severity of pain likely this is acute appendicitis without perforation. Tobacco use - counseled on cessation, she is cutting back on vaping. NPO inpatient/ place transgluteal drain d/w rn Vitals/I&O Vitals/I&O: Vital Signs Date Time Temp Pulse Resp B/P (MAP) Pulse Ox O2 Delivery O2 Flow Rate FiO2 05/28/21 11:00 98.3 85 16 129/81 (97) 99 Room Air 98.3 I & O 05/27/21 05/27/21 05/28/21 15:00 23:00 07:00 Intake Total 120 ml 120 ml Balance 120 ml 120 ml Physical Exam Physical Exam: Pt in NAD. Appears pleasant and talkative General: Alert, Cooperative, No acute distress Heart: Regular rate, Normal S1, Normal S2 Lungs: Clear Abdomen: Soft, Other (scant serous fluid in drain) Extremities: No clubbing, No cyanosis, No edema (No lower extremity edema) Skin: No rashes Review of Systems Review of Systems: Pt complains of diarrhea Assessment and Plan Assessmemt and Plan Problems Medical Problems: (1) Acute appendicitis with generalized peritonitis and abscess Status: Acute Appendicitis with ruptured abscess and appendicoliths (Interval appendectomy in 4-6 weeks) Tobacco use Diarrhea Plan: Consider repeat CT Saturday Check stool for C. dif Order Immodium Trend labs Continue antibiotics (Flagyl, Levofloxacin) Encourage po intake Cardiac monitoring DVT prophylaxis Full code Comment Review of Relevant I have reviewed the following items reuben (where applicable) has been applied. Justifications for Admission Other Justification ANUP CARVALHO III DO May 28, 2021 13:49
[2021-05-28 15:16] VITALS: BP 147/85
[2021-05-28 15:20] LABS: BASO % 1 % (0-3); EOS # 0.3 x10^3/uL (0.0-0.7); EOS % 5 % (0-3); HEMATOCRIT 36.9 % (36.0-47.0); HEMOGLOBIN 12.8 g/dL (12.0-15.5); LYMPH # 1.2 x10^3/uL (1.0-4.8); LYMPH % 16 % (24-48); MEAN CORPUSCULAR HEMOGLOBIN 32 pg (25-35); MEAN CORPUSCULAR HGB CONC 35 g/dL (31-37); MEAN CORPUSCULAR VOLUME 93 fL (79-100); MONO # 0.9 x10^3/uL (0.0-1.1); MONO % 12 % (0-9); NEUT # 5.1 x10^3/uL (1.8-7.7); NEUT % 68 % (31-73); PLATELET COUNT 518 x10^3/uL (140-400); RED BLOOD COUNT 3.97 x10^6/uL (3.50-5.40); RED CELL DISTRIBUTION WIDTH 13.1 % (11.5-14.5); WHITE BLOOD COUNT 7.5 x10^3/uL (4.0-11.0)
[2021-05-28 15:27] LABS: CALCIUM 8.8 mg/dL (8.5-10.1); CREATININE 0.8 mg/dL (0.6-1.0); GFR 76.2; POTASSIUM 3.6 mmol/L (3.5-5.1)
[2021-05-28] MEDS: ONDANSETRON PF 4 MG/2 ML VIAL. IVP PRN (16:43)
[2021-05-28 19:00] VITALS: BP 128/71
[2021-05-28 22:00] VITALS: BP 136/71
[2021-05-29] MEDS: ACETAMINOPHEN 325 MG TABLET. PO PRN (00:37)
[2021-05-29 02:55] VITALS: BP 124/79
[2021-05-29 07:15] VITALS: BP 134/65
[2021-05-29 07:32] LABS: BASO # 0.1 x10^3/uL (0.0-0.2); BASO % 1 % (0-3); EOS # 0.3 x10^3/uL (0.0-0.7); EOS % 3 % (0-3); HEMATOCRIT 37.2 % (36.0-47.0); LYMPH # 1.5 x10^3/uL (1.0-4.8); LYMPH % 15 % (24-48); MEAN CORPUSCULAR HEMOGLOBIN 33 pg (25-35); MEAN CORPUSCULAR HGB CONC 35 g/dL (31-37); MEAN CORPUSCULAR VOLUME 93 fL (79-100); MONO # 1.2 x10^3/uL (0.0-1.1); MONO % 12 % (0-9); NEUT # 7.3 x10^3/uL (1.8-7.7); NEUT % 70 % (31-73); PLATELET COUNT 536 x10^3/uL (140-400); RED CELL DISTRIBUTION WIDTH 12.8 % (11.5-14.5); WHITE BLOOD COUNT 10.3 x10^3/uL (4.0-11.0)
--- NOTE | 2021-05-29 08:15 | PDOC ---
SURGICAL PROGRESS NOTE DATE: 05/29/21 TIME: 08:14 Subjective Patient doing quite well minimal to no pain. Having some nausea with smell of food Vital Signs Vital Signs Date Time Temp Pulse Resp B/P (MAP) Pulse Ox O2 Delivery O2 Flow Rate FiO2 05/29/21 02:55 98.8 82 18 124/79 (94) 99 Room Air 98.8 I&O Intake and Output 05/29/21 07:00 Intake Total 1300 ml Balance 1300 ml Intake Oral 1100 ml IV Total 200 ml # Voids 2 PATIENT HAS A BENJAMIN: No General: Alert, Oriented X3, Cooperative, No acute distress Abdomen: Normal bowel sounds, Soft, No tenderness, Other (SALOME drain intact with serous drainage) Labs Laboratory Tests Test 05/28/21 14:25 05/29/21 06:25 White Blood Count 7.5 x10^3/uL (4.0-11.0) 10.3 x10^3/uL (4.0-11.0) Red Blood Count 3.97 x10^6/uL (3.50-5.40) 4.00 x10^6/uL (3.50-5.40) Hemoglobin 12.8 g/dL (12.0-15.5) 13.0 g/dL (12.0-15.5) Hematocrit 36.9 % (36.0-47.0) 37.2 % (36.0-47.0) Mean Corpuscular Volume 93 fL (79-100) 93 fL (79-100) Mean Corpuscular Hemoglobin 32 pg (25-35) 33 pg (25-35) Mean Corpuscular Hemoglobin Concent 35 g/dL (31-37) 35 g/dL (31-37) Red Cell Distribution Width 13.1 % (11.5-14.5) 12.8 % (11.5-14.5) Platelet Count 518 x10^3/uL (140-400) 536 x10^3/uL (140-400) Neutrophils (%) (Auto) 68 % (31-73) 70 % (31-73) Lymphocytes (%) (Auto) 16 % (24-48) 15 % (24-48) Monocytes (%) (Auto) 12 % (0-9) 12 % (0-9) Eosinophils (%) (Auto) 5 % (0-3) 3 % (0-3) Basophils (%) (Auto) 1 % (0-3) 1 % (0-3) Neutrophils # (Auto) 5.1 x10^3/uL (1.8-7.7) 7.3 x10^3/uL (1.8-7.7) Lymphocytes # (Auto) 1.2 x10^3/uL (1.0-4.8) 1.5 x10^3/uL (1.0-4.8) Monocytes # (Auto) 0.9 x10^3/uL (0.0-1.1) 1.2 x10^3/uL (0.0-1.1) Eosinophils # (Auto) 0.3 x10^3/uL (0.0-0.7) 0.3 x10^3/uL (0.0-0.7) Basophils # (Auto) 0.0 x10^3/uL (0.0-0.2) 0.1 x10^3/uL (0.0-0.2) Sodium Level 138 mmol/L (136-145) Potassium Level 3.6 mmol/L (3.5-5.1) Chloride Level 102 mmol/L (98-107) Carbon Dioxide Level 25 mmol/L (21-32) Anion Gap 11 (6-14) Blood Urea Nitrogen 9 mg/dL (7-20) Creatinine 0.8 mg/dL (0.6-1.0) Estimated GFR (Cockcroft-Gault) 76.2 Glucose Level 89 mg/dL (70-99) Calcium Level 8.8 mg/dL (8.5-10.1) Laboratory Tests Test 05/28/21 14:25 05/29/21 06:25 White Blood Count 7.5 x10^3/uL (4.0-11.0) 10.3 x10^3/uL (4.0-11.0) Red Blood Count 3.97 x10^6/uL (3.50-5.40) 4.00 x10^6/uL (3.50-5.40) Hemoglobin 12.8 g/dL (12.0-15.5) 13.0 g/dL (12.0-15.5) Hematocrit 36.9 % (36.0-47.0) 37.2 % (36.0-47.0) Mean Corpuscular Volume 93 fL (79-100) 93 fL (79-100) Mean Corpuscular Hemoglobin 32 pg (25-35) 33 pg (25-35) Mean Corpuscular Hemoglobin Concent 35 g/dL (31-37) 35 g/dL (31-37) Red Cell Distribution Width 13.1 % (11.5-14.5) 12.8 % (11.5-14.5) Platelet Count 518 x10^3/uL (140-400) 536 x10^3/uL (140-400) Neutrophils (%) (Auto) 68 % (31-73) 70 % (31-73) Lymphocytes (%) (Auto) 16 % (24-48) 15 % (24-48) Monocytes (%) (Auto) 12 % (0-9) 12 % (0-9) Eosinophils (%) (Auto) 5 % (0-3) 3 % (0-3) Basophils (%) (Auto) 1 % (0-3) 1 % (0-3) Neutrophils # (Auto) 5.1 x10^3/uL (1.8-7.7) 7.3 x10^3/uL (1.8-7.7) Lymphocytes # (Auto) 1.2 x10^3/uL (1.0-4.8) 1.5 x10^3/uL (1.0-4.8) Monocytes # (Auto) 0.9 x10^3/uL (0.0-1.1) 1.2 x10^3/uL (0.0-1.1) Eosinophils # (Auto) 0.3 x10^3/uL (0.0-0.7) 0.3 x10^3/uL (0.0-0.7) Basophils # (Auto) 0.0 x10^3/uL (0.0-0.2) 0.1 x10^3/uL (0.0-0.2) Sodium Level 138 mmol/L (136-145) Potassium Level 3.6 mmol/L (3.5-5.1) Chloride Level 102 mmol/L (98-107) Carbon Dioxide Level 25 mmol/L (21-32) Anion Gap 11 (6-14) Blood Urea Nitrogen 9 mg/dL (7-20) Creatinine 0.8 mg/dL (0.6-1.0) Estimated GFR (Cockcroft-Gault) 76.2 Glucose Level 89 mg/dL (70-99) Calcium Level 8.8 mg/dL (8.5-10.1) Problem List Problems Medical Problems: (1) Acute appendicitis with generalized peritonitis and abscess Status: Acute Assessment/Plan Appendicitis with periappendiceal abscess treated with IR drainage antibiotics. Scheduled for repeat CT scan today of fluid collection resolved DC SALOME drain and may be discharged home on Augmentin for 1 week Justicifation of Admission Dx: Justifications for Admission: Justification of Admission Dx: Yes Sepsis: Infection SHON HUMPHRIES MD May 29, 2021 08:15
[2021-05-29] MEDS ORDERED: IOHEXOL 300 MG/ML 100ML VIAL. IV ONE (08:45)
[2021-05-29] MEDS ORDERED: IOHEXOL 240 MG/ML 50ML VIAL. PO ONE (08:45)
[2021-05-29] MEDS: ONDANSETRON PF 4 MG/2 ML VIAL. IVP PRN (08:54)
[2021-05-29] MEDS: LACTOBACILLUS RHAMNOSUS GG 1 CAPSULE. PO SCH (09:00)
[2021-05-29] MEDS ORDERED: CONTRAST GIVEN. MC PRN (09:00)
--- NOTE | 2021-05-29 10:23 | NUR ---
SW following. Discussed with RN, pt from home with family, room air, regular diet. COVID-19 negative. Surgery following - pt having a repeat CT today. Med Assist following for self pay status. SW will continue to follow.
[2021-05-29] MEDS: LOPERAMIDE 2 MG CAPSULE PO PRN ×2 (10:50→15:13)
[2021-05-29 11:05] VITALS: BP 149/80
--- NOTE | 2021-05-29 11:05 | RAD ---
EXAM: Abdomen and pelvis CT with intravenous contrast. HISTORY: Abscess. TECHNIQUE: Computed tomographic images of the abdomen and pelvis were obtained following the administ ration of intravenous contrast. Multiplanar reformatting was performed. *One or more of the following individualized dose reduction techniques were utilized for this examina tion: 1. Automated exposure control. 2. Adjustment of the mA and/or kV according to patient size. 3. Use of iterative reconstruction technique. COMPARISON: 05/24/2021. FINDINGS: Evaluation of the lower thorax is unremarkable. There is a prominent left hepatic lobe, a n ormal variant. No suspicious hepatic lesion is seen. The gallbladder, pancreas, spleen, stomach, adre nal glands and kidneys are unremarkable. The appendix is dilated and contains a hyperdense structure due to a suspected appendicolith. There i s surrounding stranding due to acute appendicitis. There may be a small adjacent extraluminal fluid c ollection measuring approximately 1.5 cm in maximum dimension There is a pigtail drainage catheter wi thin the pelvis of the right of midline. The previously demonstrated fluid within the dependent porti on of the pelvis is no longer seen. No drainable collection is seen. There is no free air. There are prominent contrast-filled loops of small bowel within the midabdomen. There is decompressio n and wall thickening involving the distal ileum. There are few sigmoid diverticula. There are multip le ovarian follicles, with a suspected dominant left ovarian follicle measuring 1.2 cm. The urinary b ladder is unremarkable. There are pelvic phleboliths. There is no convincing free air. The aorta is n ormal in caliber. There is no suspicious lymphadenopathy. There is degenerative change involving the lower lumbar spine. IMPRESSION: 1. Acute appendicitis. There is a 1.5 cm fluid collection along the dilated fluid-filled appendix whi ch may be a tiny abscess. This is not clearly separable from multiple adjacent bowel loops. No free a ir is seen. 2. Pigtail drainage catheter within the pelvis to the right of midline. The previously demonstrated p elvic fluid is no longer seen. 3. Segmental wall thickening involving the distal ileum suggesting ileitis. This may be reactive/infl ammatory or infectious in etiology. 4. Prominent loops of small bowel within the left abdomen. There is is likely due to a component of i leus. No convincing small bowel obstruction is seen. Electronically signed by: Sienna Stafford MD (05/29/2021 11:02 AM) [id number]
--- NOTE | 2021-05-29 12:57 | PDOC ---
[facility] PROGRESS NOTE Date of Service DOS: DATE: 05/29/21 TIME: 12:53 Chief Complaint Chief Complaint Appendicitis with ruptured abscess and appendicoliths (Interval appendectomy in 4-6 weeks) Tobacco use Diarrhea History of Present Illness History of Present Illness 05/29/2021: Pt seen and examined. Chart reviewed. Discussed with RN. Pt feeling better today. Diarrhea has diminished considerably. Discussed with daughter Marni. 05/28/2021: Pt seen and examined. Chart reviewed. Discussed with RN. Pt is feeling much better today. Serous fluid in SALOME drain. SALOME drain site clean, dry, intact. Pt's abdomen less distended. 05/27/2021: Pt was seen and examined. Chart reviewed. Pt appears comfortable and talkative. Pt states that her last BM was hour ago. Her diarrhea has improved after swicthing off zosyn to to levaquin/flagyl. Pt does endorse nausea hours after a meal yesterday. Also reports mild abdominal distension. Pt is looking forward to discharge and is curious how long SALOME drain will be in place. She notes a very small amount of straw colored fluid. Pt reports improving pain while taking tylenol. States no previous opioid use prior to current admission. 05/26/2021: Pt was seen and examined. Chart reviewed. Discussed with RN and family bedside. Pt appears comfortable and talkative. Yellow straw colored fluid noted to SALOME drain at bedside. Pt endorses NBNB diarrhea 2/2 zosyn. States "I feel much better". 9-30 intractable abdominal pain - acute appendicitis. Has PCN allergy listed notes only nausea as she has received Zosyn with no problems. We will continue every 6 hours. Discussed with radiology there is no clear sign of perforation and no clear abscess area to drain, likely pelvic fluid. Given severity of pain likely this is acute appendicitis without perforation. Tobacco use - counseled on cessation, she is cutting back on vaping. NPO inpatient/ place transgluteal drain d/w rn Vitals/I&O Vitals/I&O: Vital Signs Date Time Temp Pulse Resp B/P (MAP) Pulse Ox O2 Delivery O2 Flow Rate FiO2 05/29/21 11:05 97.9 82 18 149/80 (103) 99 Room Air 97.9 05/29/21 08:00 2.0 I & O 05/28/21 05/28/2121 15:00 23:00 07:00 Intake Total 800 ml 500 ml Balance 800 ml 500 ml Physical Exam Physical Exam: Pt in NAD. Appears pleasant and talkative General: Alert, Oriented X3, Cooperative, No acute distress Heart: Regular rate, Normal S1, Normal S2 Lungs: Clear Abdomen: Normal bowel sounds, Soft, No tenderness, Other (SALOME drain intact with serous drainage) Extremities: No clubbing, No cyanosis, No edema (No lower extremity edema) Skin: No rashes Labs Labs: Laboratory Tests Test 05/28/21 14:25 05/29/21 06:25 White Blood Count 7.5 x10^3/uL (4.0-11.0) 10.3 x10^3/uL (4.0-11.0) Red Blood Count 3.97 x10^6/uL (3.50-5.40) 4.00 x10^6/uL (3.50-5.40) Hemoglobin 12.8 g/dL (12.0-15.5) 13.0 g/dL (12.0-15.5) Hematocrit 36.9 % (36.0-47.0) 37.2 % (36.0-47.0) Mean Corpuscular Volume 93 fL (79-100) 93 fL (79-100) Mean Corpuscular Hemoglobin 32 pg (25-35) 33 pg (25-35) Mean Corpuscular Hemoglobin Concent 35 g/dL (31-37) 35 g/dL (31-37) Red Cell Distribution Width 13.1 % (11.5-14.5) 12.8 % (11.5-14.5) Platelet Count 518 x10^3/uL (140-400) 536 x10^3/uL (140-400) Neutrophils (%) (Auto) 68 % (31-73) 70 % (31-73) Lymphocytes (%) (Auto) 16 % (24-48) 15 % (24-48) Monocytes (%) (Auto) 12 % (0-9) 12 % (0-9) Eosinophils (%) (Auto) 5 % (0-3) 3 % (0-3) Basophils (%) (Auto) 1 % (0-3) 1 % (0-3) Neutrophils # (Auto) 5.1 x10^3/uL (1.8-7.7) 7.3 x10^3/uL (1.8-7.7) Lymphocytes # (Auto) 1.2 x10^3/uL (1.0-4.8) 1.5 x10^3/uL (1.0-4.8) Monocytes # (Auto) 0.9 x10^3/uL (0.0-1.1) 1.2 x10^3/uL (0.0-1.1) Eosinophils # (Auto) 0.3 x10^3/uL (0.0-0.7) 0.3 x10^3/uL (0.0-0.7) Basophils # (Auto) 0.0 x10^3/uL (0.0-0.2) 0.1 x10^3/uL (0.0-0.2) Sodium Level 138 mmol/L (136-145) Potassium Level 3.6 mmol/L (3.5-5.1) Chloride Level 102 mmol/L (98-107) Carbon Dioxide Level 25 mmol/L (21-32) Anion Gap 11 (6-14) Blood Urea Nitrogen 9 mg/dL (7-20) Creatinine 0.8 mg/dL (0.6-1.0) Estimated GFR (Cockcroft-Gault) 76.2 Glucose Level 89 mg/dL (70-99) Calcium Level 8.8 mg/dL (8.5-10.1) Review of Systems Review of Systems: Pt complains of nausea when trying to eat Assessment and Plan Assessmemt and Plan Problems Medical Problems: (1) Acute appendicitis with generalized peritonitis and abscess Status: Acute Appendicitis with ruptured abscess and appendicoliths (Interval appendectomy in 4-6 weeks) Tobacco use Diarrhea Plan: Continue antibiotics Cardiac monitoring DVT prophylaxis Trend labs Full code Probably discharge today if CT looks good Gave RN prescriptions for Flagyl, Levaquin, and Zofran to give to pt upon discharge Comment Review of Relevant I have reviewed the following items reuben (where applicable) has been applied. Medications: Current Medications Medications (Trade) Dose Ordered Sig/Louisa Route PRN Reason Start Time Stop Time Status Last Admin Dose Admin Loperamide HCl (Imodium) 2 mg PRN Q15MIN PRN PO DIARRHEA 05/28/21 14:30 10/4/21 10:50 Iohexol (Omnipaque 240 Mg/ml) 50 ml 1X ONCE PO 05/29/21 08:45 05/29/21 08:46 DC 05/29/21 08:45 Iohexol (Omnipaque 300 Mg/ml) 75 ml 1X ONCE IV 05/29/21 08:45 05/29/21 08:46 DC 05/29/21 08:45 Justifications for Admission Other Justification ANUP CARVALHO III DO May 29, 2021 12:57
[2021-05-29 14:57] VITALS: BP 137/86
--- NOTE | 2021-05-29 15:50 | DS ---
DATE OF DISCHARGE: 05/29/2021 ADMISSION DIAGNOSES: Severe acute appendicitis with peritonitis and phlegmon and fecalith and ruptured appendix. DISCHARGE DIAGNOSIS: Resolving appendicitis. CONSULTS: General Surgery and GI. PROCEDURES: A right transgluteal SALOME drain placement. She is going for appendectomy in a couple of weeks. HOSPITAL COURSE: The patient is a pleasant 50-year-old female who presented with abdominal pain, was noted to have severe appendicitis on imaging. There was phlegmon and stones and fluid collection and a ruptured appendix. She was admitted. We gave her IV antibiotics. The above consults were obtained. She was taken for a right transgluteal drain placement. The SALOME drain at first had a lot of pus in it. Over the past 48 hours, it has turned to a nice clear fluid. Her white count has dropped all the way down to normal, today it was 7. Clinically, she looks great. We repeated the imaging, it is improving. She wants to go home. I spoke with Dr. Chauhan. He plans to do an appendectomy in a couple of weeks when the fluid is completely drained and her anatomy has improved as this will avoid her having to get a colostomy. DISPOSITION: Home. ACTIVITY: As tolerated. DIET: Low sodium. DISCHARGE MEDICATIONS: Please see the [facility]. Flagyl 500 p.o. q.i.d. and Levaquin 500 p.o. every day. Total time [address]: Anatoly TID: [id number]
[2021-05-29] MEDS ORDERED: AMOX1TAB61 PO ×4 (16:17→16:34)
[2021-05-29] MEDS ORDERED: METR500T PO (16:29)
[2021-05-29] MEDS ORDERED: ONDA4TAB12 PO (16:30)
--- NOTE | 2021-05-29 16:45 | NUR ---
Discharge information reviewed.
--- NOTE | 2021-05-29 17:25 | NUR ---
Per Dr. Chauhan's note, may DC SALOME drain if drainage has resolved per CT scan drainage has resolved. SALOME was being removed but IR placed drain so unable to remove. IR gone for the day and pt being discharged. Dr. Parks was notified and he said to apply dressing back over and have pt follow up with IR tomorrow.
--- NOTE | 2021-05-29 17:52 | NUR ---
pt discharged. taken out by wheelchair, home with spouse
== END 2021-05-29 17:25 | disposition home or self-care (01) | DRG 372 ==
LOC: ER 10:14 → 4 NORTH 12:42 → ER 13:54
PROVIDERS: ADMIT Internal Medicine; ATTEND Internal Medicine
PROC: 0W9J30Z Drainage of Pelvic Cavity with Drainage Device, Percutaneous Approach (ICD-10-PCS; principal; 2021-05-26)
DX: K35.21 Acute appendicitis with generalized peritonitis, with abscess (principal); K52.1 Toxic gastroenteritis and colitis; K56.41 Fecal impaction; Y99.0 Civilian activity done for income or pay; Z88.0 Allergy status to penicillin; F17.210 Nicotine dependence, cigarettes, uncomplicated; Z71.6 Tobacco abuse counseling
CPT/HCPCS: 36415; 49406; 74177; 80048; 80053; 80307; 81001; 81025; 82550; 82962; 83690; 85025; 86140; 87071; 87075; 87076; 87077; 87086; 87186; 87426; 96361; 96365; 96375; 96376; 99152; 99153; J0780; J1170; J1956; J2405; J2543; J2765; J3010; J3480; J3490; J7030; Q9966; Q9967; U0003; U0005; 99285-25; G0378

== ENCOUNTER → 2021-07-13 | Day surgery (SDC) | payer SELFPAY ==
[~2021-07-13] VITALS: Ht 157.5 cm; Wt 51.0 kg
[~2021-07-13] MED LIST: ACETAMINOPHEN 500 MG TABLET PO PRN; AMOX1TAB61 PO; ASCO-180 PO; ASCO1TAB14 PO; BUPIVACAINE-EPI 0.25% 30 ML VIAL KIT. ONE; Birth control PO; DEXAMETHASONE SOD PHOS 4 MG/ML VIAL ONE; FAMOTIDINE 20 MG/2 ML VIAL ONE; GLYCOPYRROLATE 1 MG/5 ML VIAL. ONE; HYDROmorphone 2 MG/ML VIAL IVP PRN; IV RINGERS,LACTATED 1000ML 1,000 ML IV SCH; KETOROLAC 30 MG/ML VIAL. ONE; METR500T PO; MORPHINE SULFATE 2 MG/ML INJ. IVP PRN; NEOSTIGMINE METHYLSULFATE 5 MG/5 ML SYRINGE. ONE; OMEG1CAP38 PO; ONDA4TAB12 PO; ONDANSETRON PF 4 MG/2 ML VIAL. IVP ONE; ONDANSETRON PF 4 MG/2 ML VIAL. ONE; OXYC-325 PO; PROCHLORPERAZINE 10 MG/2 ML VIAL. IVP PRN; PROCHLORPERAZINE 10 MG/2 ML VIAL. ONE; PROPOFOL 10 MG/ML (20ML) VIAL. IV ONE; ROCURONIUM 50 MG/5 ML VIAL. ONE; SEVOFLURANE 31 TO 60 MINUTES. IH ONE; fentaNYL PF VIAL 100 MCG/2 ML VIAL IVP PRN; fentaNYL PF VIAL 100 MCG/2 ML VIAL ONE; oxyCODONE/APAP 5/325 1 TAB TABLET PO ONE
[2021-07-13 07:19] VITALS: BP 133/76
--- NOTE | 2021-07-13 07:41 | PDOC1 ---
History and Physical Date of Admission Date of Admission DATE: 07/13/21 TIME: 07:39 Identification/Chief Complaint Chief Complaint Right lower quadrant abdominal pain Source Source: Chart review, Patient History of Present Illness History of Present Illness 50-year-old female recently hospitalized with a perforated acute appendicitis with abscess which was drained by interventional radiology subsequently has resolved drains been removed she is post drain by 4 weeks. Returns now for interval appendectomy Past Medical History Cardiovascular: No pertinent hx Past Surgical History Past Surgical History: No pertinent history Family History Family History: No Significant Social History ALCOHOL: other Current Medications Current Medications Current Medications Fentanyl Citrate (Fentanyl 2ml Vial) 25 mcg PRN Q5MIN PRN IVP MILD PAIN 1-3; Start 07/13/21 at 06:00; Stop 07/14/21 at 05:59 Fentanyl Citrate (Fentanyl 2ml Vial) 50 mcg PRN Q5MIN PRN IVP MODERATE PAIN 4- 6; Start 07/13/21 at 06:00; Stop 07/14/21 at 05:59 Morphine Sulfate (Morphine Sulfate) 1 mg PRN Q10MIN PRN IVP SEVERE PAIN 7-10; Start 07/13/21 at 06:00; Stop 07/14/21 at 05:59 Ringer's Solution 1,000 ml @ 30 mls/hr Q24H IV Last administered on 07/13/21at 07:33; Start 07/13/21 at 06:00; Stop 07/13/21 at 17:59 Hydromorphone HCl (Dilaudid) 0.5 mg PRN Q10MIN PRN IVP SEVERE PAIN 7-10, 2nd CHOICE; Start 07/13/21 at 06:00; Stop 07/14/21 at 05:59 Prochlorperazine Edisylate (Compazine) 5 mg PACU PRN PRN IVP NAUSEA, MRX1; Start 07/13/21 at 06:00; Stop 07/14/21 at 05:59 Acetaminophen (Tylenol) 1,000 mg 1X PREOP PRN PO PRIOR TO PROCEDURE; Start 07/13/21 at 06:00; Stop 07/14/21 at 05:59 Levofloxacin/ Dextrose 100 ml @ 100 mls/hr 1X PREOP PRN IV PRIOR TO SURGERY; Start 07/13/21 at 06:00 Famotidine (Pepcid Vial) 20 mg STK-MED ONCE .ROUTE ; Start 07/13/21 at 07:01; Stop 07/13/21 at 07:02; Status DC Propofol (Diprivan) 200 mg STK-MED ONCE IV ; Start 07/13/21 at 07:01; Stop 07/13/21 at 07:02; Status DC Fentanyl Citrate (Fentanyl 2ml Vial) 100 mcg STK-MED ONCE .ROUTE ; Start 07/13/21 at 07:02; Stop 07/13/21 at 07:02; Status DC Rocuronium Hedrick (Zemuron) 50 mg STK-MED ONCE .ROUTE ; Start 07/13/21 at 07:02; Stop 07/13/21 at 07:03; Status DC Glycopyrrolate (Robinul) 1 mg STK-MED ONCE .ROUTE ; Start 07/13/21 at 07:03; Stop 07/13/21 at 07:04; Status DC Neostigmine Hedrick (Neostigmine Methylsulfate) 5 mg STK-MED ONCE .ROUTE ; Start 07/13/21 at 07:04; Stop 07/13/21 at 07:04; Status DC Ondansetron HCl (Zofran) 4 mg STK-MED ONCE .ROUTE ; Start 07/13/21 at 07:04; Stop 07/13/21 at 07:04; Status DC Ketorolac Tromethamine (Toradol 30mg Vial) 30 mg STK-MED ONCE .ROUTE ; Start 07/13/21 at 07:04; Stop 07/13/21 at 07:04; Status DC Dexamethasone Sodium Phosphate (Decadron) 4 mg STK-MED ONCE .ROUTE ; Start 07/13/21 at 07:04; Stop 07/13/21 at 07:04; Status DC Sevoflurane (Ultane) 30 ml STK-MED ONCE IH ; Start 07/13/21 at 07:05; Stop 07/13/21 at 07:05; Status DC Active Scripts Active Reported [ control] Unknown Dose PO DAILY Allergies Allergies: Coded Allergies: Penicillins (Verified Adverse Reaction, Intermediate, N/V, 07/13/21) ROS Gastrointestinal: Yes Abdominal Pain Physical Exam General: Alert, Oriented X3, Cooperative, No acute distress HEENT: Atraumatic, EOMI Lungs: Clear to auscultation, Normal air movement Heart: RRR, no murmurs Abdomen: Normal bowel sounds, Soft, No tenderness Rectal Exam: not examined Extremities: No edema Skin: No significant lesion Neuro: Normal speech Psych/Mental Status: Mental status NL Vitals Vitals Vital Signs Date Time Temp Pulse Resp B/P (MAP) Pulse Ox O2 Delivery O2 Flow Rate FiO2 07/13/21 07:23 97.7 66 18 133/76 100 97.7 Labs Labs Laboratory Tests Test 07/13/21 07:06 Bedside Urine HCG, Qualitative Hcg negative (Negative) Laboratory Tests Test 07/13/21 07:06 Bedside Urine HCG, Qualitative Hcg negative (Negative) VTE Prophylaxis Ordered VTE Prophylaxis Devices: Yes VTE Pharmacological Prophylaxi: Contraindicated Assessment/Plan Assessment/Plan History of perforated appendicitis returns for interval appendectomy plan to be done laparoscopically Justifications for Admission Other Justification SHON HUMPHRIES MD Jul 13, 2021 07:41
--- NOTE | 2021-07-13 08:30 | PDOC4 ---
Operative Note Operative Note Date: July 13, 2021 at 827 Preoperative diagnosis: Acute appendicitis Postoperative diagnosis: Same Procedure: Laparoscopic appendectomy Surgeon: Tien Specimen: Appendix Dictation: Patient is a 50-year-old female was recently hospitalized with acute appendicitis perforation abscess she underwent an interventional radiology percutaneous drain for the abscess antibiotic treatment she recovered she returns now for an interval appendectomy. Procedure of appendectomy was explained to the patient detail was benefits were also discussed including bleeding infection injury to intra-abdominal contents possible necessitating further open operations alternatives to this procedure also discussed with radha holt who seemed to understand and gave a verbal written consent to have procedure performed. Patient was taken to the operating room placed in supine position general anesthesia was initiated once patient was sleeping intubated her abdomen was prepped and draped usual sterile fashion using ChloraPrep. Area just above the umbilicus was injected quarter percent Marcaine with epinephrine incision was made 11 blade scalpel and a varies needle was placed within the abdomen creating pneumoperitoneum once this was complete 12 mm port was placed and a 5 mm camera is placed within the abdomen which was inspected no other abnormalities were noted. 5 mm port was placed low in the midline under direct visualization and a 5 mm port was placed in the right midabdomen the appendix was visualized grasped with a [place] dissector retracted towards the anterior abdominal wall a another grasper was used to propagate a window through the mesoappendix at the base of the appendix and Endo GISELLA stapler was then used to staple and transect the base of the appendix a second load was used to staple and transect the mesoappendix. The appendix was then placed in Endo Catch bag moving the umbilicus right lower quadrant was irrigated suctioned dry hemostasis deemed be appropriate the pneumoperitoneum was reduced all ports were removed the fascial defect at the umbilicus was closed with a [id number] 0 Vicryl suture and the skin was reapproximated all port sites for subcuticular Monocryl Mastisol Steri-Strips and island dressings were applied. Patient was awakened extubated in the operating room taken recovery in stable condition all sponge instrument needle counts listed as correct estimated blood loss 5 mL SHON HUMPHRIES MD Jul 13, 2021 08:30
--- NOTE | 2021-07-13 08:33 | DISCH ---
DISCHARGE INSTRUCTIONS Condition on Discharge Condition on Discharge: Stable Activity After Discharge Activity Instructions for Disc: Avoid exertion Other activity instructions: No lifting more than 20 pounds for 2-week Driving Instructions after Dis: Do not drive today Diet after Discharge Diet after Discharge: Regular Wound Incision Care Other wound/incision instructi: May shower in 24 hours Contacting the after DC Call your doctor for: If your condition worsens Follow-Up Follow up with: Dr. Humphries in 2 weeks SHON HUMPHRIES MD Jul 13, 2021 08:33
[2021-07-13 09:11] VITALS: BP 102/63
== END | disposition home or self-care (01) ==
LOC: SURG 06:39
PROVIDERS: ATTEND Surgery
DX: K35.80 Unspecified acute appendicitis (principal); F17.210 Nicotine dependence, cigarettes, uncomplicated; Z79.899 Other long term (current) drug therapy; Z98.890 Other specified postprocedural states; Z88.0 Allergy status to penicillin; Z72.89 Other problems related to lifestyle
CPT/HCPCS: 44970; 81025; A4314; A4930; J0780; J1100; J1885; J1956; J2405; J2704; J2710; J3010; J3490